=== PATIENT | female | born 1935 | race Caucasian/White ===

== ENCOUNTER → 2017-04-25 | Outpatient (CLI) | payer MEDICARE ==
[2017-04-25 17:25] LABS: ABSOLUTE BASOPHILS # (AUTO) 0.1 10^3/uL (0.0-0.2); ABSOLUTE EOSINOPHILS # (AUTO) 0.5 10^3/uL (0.0-0.6); ABSOLUTE LYMPHOCYTES (AUTO) 2.8 10^3/uL (0.5-4.7); ABSOLUTE MONOCYTES (AUTO) 1.2 10^3/uL (0.1-1.4); ABSOLUTE NEUT (AUTO) 7.3 10^3/uL (1.7-8.2); BASOPHILS % (AUTO) 0.7 % (0-2); EOSINOPHILS % (AUTO) 4.3 % (0-6); HEMATOCRIT 40.1 % (36.0-47.0); HEMOGLOBIN 13.6 g/dL (12.0-15.5); HGB HCT DIFFERENCE 0.7; LYMPHOCYTES % (AUTO) 23.6 % (13-45); MEAN CORPUSCULAR HEMOGLOBIN 30.9 pg (27.0-33.4); MEAN CORPUSCULAR HGB CONC 33.8 g/dL (32.0-36.0); MEAN CORPUSCULAR VOLUME 91 fl (80-97); MONOCYTES % (AUTO) 10.1 % (3-13); RED BLOOD COUNT 4.39 10^6/uL (3.72-5.28); RED CELL DISTRIBUTION WIDTH 13.4 % (11.5-14.0); SEGMENTED NEUTROPHILS % (AUTO) 61.3 % (42-78); WHITE BLOOD COUNT 11.9 10^3/uL (4.0-10.5)
== END ==
LOC: OD 16:39
PROVIDERS: ATTEND Internal Medicine Pulmonary Disease
DX: J32.9 Chronic sinusitis, unspecified (principal); R53.81 Other malaise
CPT/HCPCS: 36415; 85025; 87086; 87804

== ENCOUNTER → 2017-04-29 | Outpatient (CLI) | payer MEDICARE ==
--- NOTE | 2017-04-29 12:38 | RADIOLOGY REPORT (SQ) ---
EXAM DESCRIPTION: PARANASAL SINUSES COMPLETED DATE/TIME: 04/29/2017 12:15 pm REASON FOR STUDY: CHRONIC SINUSITIS, UNSPECIFIED J32.9 CHRONIC SINUSITIS, UNSPECIFIED COMPARISON: None. NUMBER OF VIEWS: Three views TECHNIQUE: Images of the paranasal sinuses acquired. LIMITATIONS: None. FINDINGS: ORBITS: No fracture. No foreign body. SINUSES: No mucosal thickening. No air fluid levels. FACIAL BONES: No fracture. OTHER: No other significant finding. IMPRESSION: NO FOREIGN BODY OR FRACTURE. NO PLAIN RADIOGRAPHIC EVIDENCE FOR SINUS DISEASE. TECHNICAL DOCUMENTATION: JOB ID: [id number] [employer]- All Rights Reserved
== END ==
LOC: OD 12:04
PROVIDERS: ATTEND Internal Medicine Pulmonary Disease
DX: J32.9 Chronic sinusitis, unspecified (principal)
CPT/HCPCS: 70220

== ENCOUNTER 2017-05-06 03:17 | Inpatient (IN) | payer MEDICARE ==
[2017-05-06] MEDS ORDERED: METHYLPREDNISOLONE INJ 125 MG/2 ML SDV IV ONE (03:28)
[2017-05-06] MEDS ORDERED: IPRATROPIUM/ALBUTEROL 0.5-2.5 MG/3 ML AMPUL NEB ONE ×2 (03:28→05:50)
--- NOTE | 2017-05-06 03:31 | ER Document Report ---
ED Respiratory Problem - General Stated Complaint: SHORTNESS OF BREATH Time Seen by Provider: 05/06/17 03:20 Notes: Patient is an 81-year-old female comes emergency department by EMS for chief complaint of shortness of breath, cough, weakness, and low-grade fevers for the past 2 days. She states that she just completed a course of azithromycin, she states she was placed on this after she was evaluated by her bacon skinner Dr. Luna. Past medical history of COPD, wears oxygen at night, has home inhalers , denies intubation. Up-to-date on influenza. Denies chest pain. Given albuterol by EMS, states she does feel improved afterwards. TRAVEL OUTSIDE OF THE [place] IN LAST 30 DAYS: No - Related Data Allergies/Adverse Reactions: Penicillins Allergy (Verified 09/15/15 06:36) ITCHING pregabalin [From Lyrica] Adverse Reaction (Intermediate, Verified 09/15/15 06:36 ) "[place] Funny" Past Medical History - General Information source: Patient, Relative - Social History Smoking Status: Former Smoker Frequency of alcohol use: None Drug Abuse: None Lives with: Family Family History: None - Past Medical History Cardiac Medical History: Reports: Hx Hypertension Pulmonary Medical History: Reports: Hx COPD, Hx Pneumonia Musculoskeltal Medical History: Reports Hx Arthritis Past Surgical History: Reports: Hx Cholecystectomy, Hx Tubal Ligation. Denies: Hx Hysterectomy - Immunizations Hx Diphtheria, Pertussis, Tetanus Vaccination: Yes Hx Pneumococcal Vaccination: 05/13/15 Review of Systems - Review of Systems Constitutional: See HPI EENT: No symptoms reported Cardiovascular: No symptoms reported Respiratory: See HPI Gastrointestinal: No symptoms reported Genitourinary: No symptoms reported Female Genitourinary: No symptoms reported Musculoskeletal: No symptoms reported Skin: No symptoms reported Hematologic/Lymphatic: No symptoms reported Neurological/Psychological: No symptoms reported Physical Exam - Vital signs Vitals: Temp Pulse Resp BP Pulse Ox 98.3 F 107 H 24 H 138/66 H 94 05/06/17 03:22 05/06/17 03:22 05/06/17 03:22 05/06/17 03:22 05/06/17 03:22 Interpretation: Normal - General General appearance: Alert - HEENT Head: Normocephalic, Atraumatic Eyes: Normal Pupils: PERRL - Respiratory Respiratory status: Tachypnea Breath sounds: Decreased air movement, Nonproductive cough, Wheezing - Cardiovascular Rhythm: Regular, Tachycardia Heart sounds: Normal auscultation, S1 appreciated, S2 appreciated Murmur: No - Abdominal Inspection: Normal Distension: No distension Bowel sounds: Normal Tenderness: Nontender. No: Tender, Guarding - Back Back: Normal, Nontender. No: Tender - Extremities General upper extremity: Normal inspection, Nontender, Normal ROM, Normal strength General lower extremity: Normal inspection, Nontender, Normal ROM, Normal strength - Neurological Neuro grossly intact: Yes Cognition: Normal Orientation: AAOx4 [place] Coma Scale Eye Opening: Spontaneous [place] Coma Scale Verbal: Oriented [place] Coma Scale Motor: Obeys Commands [place] Coma Scale Total: 15 Speech: Normal Motor strength normal: LUE, RUE, LLE, RLE Sensory: Normal - Psychological Associated symptoms: Normal affect, Normal mood - Skin Skin Temperature: Warm Skin Moisture: Dry Skin Color: Normal Course - Re-evaluation Re-evalutation: 05/06/17 Patient with tachypnea, expiratory wheezes, congested cough. Given DuoNeb, she is Yair received treatment from EMS, giving Solu-Medrol. Placed on oxygen. Workup pending. CBC unremarkable, chemistry unremarkable, troponin is not elevated, urinalysis unremarkable. Influenza negative. Venous blood gas is unremarkable. Blood cultures pending. Reevaluated patient, wheezing has resolved. She got up and went to the bathroom and had significantly more labored breathing and became pale. On oxygen patient having episodes of desaturation where she will drop down to 89-90 % and then recover. Chest x-ray has the appearance of right-sided pneumonia, radiologist reading as vascular congestion, however patient having low-grade fevers, productive cough, and BNP is not elevated. No history of heart failure, no lower extremity edema , no rales on exam. Discussed with Dr. Jenkins, also believes chest x-ray suggestive of pneumonia. Clinically I believe patient has pneumonia. Treating with Keenan. Concerned about patient going home because of episodes of desaturation, COPD exacerbation, pneumonia, and advanced age. Discussed with patient and family members at bedside. Will discuss with hospitalist for admission. Discussed with Dr. Mcelroy, internal medicine, patient will be admitted to telemetry full admission. Patient and family state understanding and agreement with this plan. - Vital Signs Vital signs: Temp Pulse Resp BP Pulse Ox 98.3 F 107 H 26 H 131/64 H 95 05/06/17 03:22 05/06/17 03:22 05/06/17 06:01 05/06/17 06:01 05/06/17 06:01 - Laboratory Result Diagrams: 05/06/17 03:52 05/06/17 03:52 Laboratory results interpreted by me: 05/06/17 04:30 Urine Blood SMALL H Discharge - Discharge Clinical Impression: Acute respiratory failure with hypoxia, COPD exacerbation, Wheezing Pneumonia Qualifiers: Pneumonia type: due to unspecified organism Laterality: right Lung location: middle lobe of lung Qualified Code(s): J18.1 - Lobar pneumonia, unspecified organism Condition: Stable Disposition: ADMITTED INPATIENT Admitting Provider: Hospitalist Unit Admitted: Telemetry
[2017-05-06 04:09] LABS: VENOUS BLOOD BASE EXCESS 1.9 mmol/L; VENOUS BLOOD HCO3 27.5 mmol/L (20-32); VENOUS BLOOD PCO2 46.3 mmHg (35-63); VENOUS BLOOD PH 7.39 (7.30-7.42)
[2017-05-06 04:12] LABS: ABSOLUTE EOSINOPHILS # (AUTO) 0.1 10^3/uL (0.0-0.6); ABSOLUTE LYMPHOCYTES (AUTO) 1.1 10^3/uL (0.5-4.7); ABSOLUTE MONOCYTES (AUTO) 0.5 10^3/uL (0.1-1.4); ABSOLUTE NEUT (AUTO) 3.6 10^3/uL (1.7-8.2); BASOPHILS % (AUTO) 0.2 % (0-2); HEMATOCRIT 42.2 % (36.0-47.0); HEMOGLOBIN 14.1 g/dL (12.0-15.5); LYMPHOCYTES % (AUTO) 20.2 % (13-45); MEAN CORPUSCULAR HEMOGLOBIN 30.3 pg (27.0-33.4); MEAN CORPUSCULAR HGB CONC 33.3 g/dL (32.0-36.0); MEAN CORPUSCULAR VOLUME 91 fl (80-97); PLATELET COUNT 206 10^3/uL (150-450); RED BLOOD COUNT 4.63 10^6/uL (3.72-5.28); RED CELL DISTRIBUTION WIDTH 13.7 % (11.5-14.0); SEGMENTED NEUTROPHILS % (AUTO) 67.6 % (42-78); TOTAL CELLS COUNTED % (AUTO) 100 %; WHITE BLOOD COUNT 5.3 10^3/uL (4.0-10.5)
[2017-05-06 04:21] LABS: ALANINE AMINOTRANSFERASE 27 U/L (9-52); ALBUMIN 3.9 g/dL (3.5-5.0); ALKALINE PHOSPHATASE 59 U/L (38-126); ANION GAP 10 (5-19); ASPARTATE AMINO TRANSFERASE 29 U/L (14-36); BILIRUBIN,DIRECT 0.2 mg/dL (0.0-0.4); BILIRUBIN,TOTAL 0.3 mg/dL (0.2-1.3); BLOOD UREA NITROGEN 11 mg/dL (7-20); CALCIUM 9.7 mg/dL (8.4-10.2); CARBON DIOXIDE 29 mmol/L (22-30); CHLORIDE 103 mmol/L (98-107); GLUCOSE 103 mg/dL (75-110); POTASSIUM 3.8 mmol/L (3.6-5.0); SODIUM 142.2 mmol/L (137-145); TOTAL PROTEIN 6.8 g/dL (6.3-8.2)
--- NOTE | 2017-05-06 04:22 | RADIOLOGY REPORT (SQ) ---
EXAM DESCRIPTION: CHEST SINGLE VIEW CLINICAL HISTORY: 81 years, Female, cough, fever, weak COMPARISON: 09/28/2015, and CT, 05/08/2014; reports only. LIMITATIONS: None. FINDINGS: Pulmonary vascular congestion, mild interstitial markings, blunting-obscuration of the right costophrenic angle, atherosclerosis, moderate thoracic dextroconvexity, mild thickening of the right inferior pleura laterally consistent with prior reports, and intact bony thorax. IMPRESSION: Pulmonary vascular congestion. 2010 [employer]- All Rights Reserved
[2017-05-06 04:30] LABS: A TYPE INFLUENZA AG NEGATIVE (NEGATIVE); B INFLUENZA AG NEGATIVE (NEGATIVE)
[2017-05-06 04:56] LABS: APPEARANCE,URINE CLEAR; BILIRUBIN,URINE NEGATIVE (NEGATIVE); COLOR,URINE YELLOW; GLUCOSE, URINE NEGATIVE (NEGATIVE); KETONES,URINE NEGATIVE (NEGATIVE); LEUKOCYTE ESTERASE,URINE NEGATIVE (NEGATIVE); NITRITE,URINE NEGATIVE (NEGATIVE); PROTEIN,URINE NEGATIVE (NEGATIVE); URINE SPECIFIC GRAVITY 1.008; UROBILINOGEN,URINE NEGATIVE mg/dL (<2.0)
[2017-05-06] MEDS ORDERED: LEVOFLOXACIN 750 MG/D5W RTU 750 MG/150 ML RTUPB IV ONE (05:47)
[2017-05-06] MEDS ORDERED: ALBUTEROL SULFATE HFA (90 MCG/PUFF) 8 GM MDI (1 MDI/ER DISP) IH PRN (05:54)
[2017-05-06] MEDS ORDERED: DIAZEPAM 5 MG TABLET PO PRN (05:54)
[2017-05-06] MEDS ORDERED: CHLORPHENIRAMINE MALEATE 4 MG TABLET PO ONE (05:58)
[2017-05-06] MEDS ORDERED: HYDRALAZINE HCL INJ/PF 20 MG/1 ML SDV IV PRN (05:58)
[2017-05-06] MEDS ORDERED: ACETAMINOPHEN 325 MG TABLET PO PRN (05:58)
[2017-05-06] MEDS ORDERED: IPRATROPIUM/ALBUTEROL 0.5-2.5 MG/3 ML AMPUL NEB PRN (06:02)
[2017-05-06] MEDS ORDERED: PREDNISONE 20 MG TABLET PO ONE (06:30)
[2017-05-06] MEDS ORDERED: CLINDAMYCIN 600 MG/D5W RTU 600 MG/50 ML RTUPB IV ONE (06:30)
[2017-05-06] MEDS ORDERED: CEFEPIME 1 GM/D5W RTU 1 GM/50 ML RTUPB IV ONE (06:30)
[2017-05-06] MEDS: HEPARIN SOD (PORCINE) 5,000 UNIT/ML 1 ML SYRINGE SUBCUT SCH ×3 (07:03→22:23)
--- NOTE | 2017-05-06 07:24 | PDOC H&P ---
History of Present Illness Admission Date/PCP: 05/06/17 06:03 NORMA AKERS MD Patient complains of: Shortness of breath History of Present Illness: BERRY JAVED is a 81 year old female with a past medical history of COPD, acute on chronic respiratory failure on home oxygen, osteoarthritis, hypertension and PE 40 years ago. Patient presents with 24 hours of rhinorrhea , postnasal drip, nonproductive cough, fever and exceptional shortness of breath not alleviated by oxygen and inhalers. In the emergency room she is hypoxic with oxygen saturations of 88% on 2 L nasal cannula. Bio physical and chemical workup are unremarkable. She started on oxygen, empiric antibiotics albuterol and Atrovent then referred to the hospitalist for admission. She denies chest pain nausea vomiting diaphoresis. Past Medical History Cardiac Medical History: Reports: Hypertension Pulmonary Medical History: Reports: Bronchitis, Chronic Obstructive Pulmonary Disease (COPD), Pneumonia, Respiratory Failure Musculoskeltal Medical History: Reports: Arthritis Psychiatric Medical History: Denies: Tobacco Dependency Hematology: Denies: Anemia, Sickle Cell Disease Past Surgical History Past Surgical History: Reports: Cholecystectomy, Tubal Ligation Denies: Amputation, Hysterectomy Social History Information Source: Patient Smoking Status: Unknown if Ever Smoked Frequency of Alcohol Use: None Hx Recreational Drug Use: No Drugs: None Hx Prescription Drug Abuse: No - Advance Directive Resuscitation Status: Full Code Family History Family History: COPD Parental Family History Reviewed: Yes Children Family History Reviewed: Yes Sibling(s) Family History Reviewed.: Yes Medication/Allergy Home Medications: Albuterol Sulfate [Proair HFA] 2 puff IH Q4 PRN 05/08/14 Amlodipine Besylate/Benazepril [Amlodipine-Benazepril 10-20 mg] 1 cap PO DAILY 05/08/14 Docusate Sodium [Colace] 50 mg PO QHS 05/08/14 Furosemide [Lasix 40 mg Tablet] 40 mg PO QAM 05/08/14 Ipratropium/Albuterol Sulfate [Combivent Inhaler] 1 puff IH QID 05/08/14 Rosuvastatin Calcium [Crestor 10 mg Tablet] 10 mg PO QHS 05/08/14 Tramadol HCl 50 mg PO BIDP PRN 05/08/14 Calcium Carb/Vitamin D3/Vit K1 [Calcium + D Soft Chewable Tab] 1 tab PO BIDBS Cholecalciferol (Vitamin D3) [Vitamin D3] 4,000 unit PO DAILY 05/09/14 Cyanocobalamin (Vitamin B-12) [Vitamin B-12] 2,500 mg PO DAILY 05/09/14 Diazepam [Valium 5 mg Tablet] 5 mg PO DAILYP PRN 05/09/14 Loratadine [Claritin] 10 mg PO DAILY 05/09/14 Multivitamin [Multi-Vitamin Daily] 1 tab PO DAILY 05/09/14 Ubidecarenone [Ultra Coq10] 1 tab PO DAILY 05/09/14 Doxycycline Hyclate 100 mg PO BID #20 tablet 09/26/15 Hydrocodone/Acetaminophen [Hemet 5-325 mg Tablet] 1 - 2 tab PO Q6HP PRN #20 tablet 09/26/15 Allergies/Adverse Reactions: Penicillins Allergy (Verified 09/15/15 06:36) ITCHING pregabalin [From Lyrica] Adverse Reaction (Intermediate, Verified 09/15/15 06:36 ) "[place] Funny" Review of Systems Constitutional: PRESENT: fatigue, fever(s). ABSENT: chills, headache(s), weight gain, weight loss Eyes: ABSENT: visual disturbances Ears: ABSENT: hearing changes Cardiovascular: ABSENT: chest pain, dyspnea on exertion, edema, orthropnea, palpitations Respiratory: PRESENT: as per HPI, cough, dyspnea. ABSENT: hemoptysis, sputum Gastrointestinal: ABSENT: abdominal pain, constipation, diarrhea, hematemesis, hematochezia, nausea, vomiting Genitourinary: ABSENT: dysuria, hematuria Musculoskeletal: ABSENT: joint swelling Integumentary: ABSENT: rash, wounds Neurological: ABSENT: abnormal gait, abnormal speech, confusion, dizziness, focal weakness, syncope Psychiatric: ABSENT: anxiety, depression, homidical ideation, suicidal ideation Endocrine: ABSENT: cold intolerance, heat intolerance, polydipsia, polyuria Hematologic/Lymphatic: ABSENT: easy bleeding, easy bruising Physical Exam Vital Signs: Temp Pulse Resp BP Pulse Ox 98.3 F 107 H 26 H 131/64 H 95 05/06/17 03:22 05/06/17 03:22 05/06/17 06:01 05/06/17 06:01 05/06/17 06:01 General appearance: PRESENT: cooperative, mild distress, thin Head exam: PRESENT: atraumatic, normocephalic Eye exam: PRESENT: conjunctiva pink, EOMI, PERRLA. ABSENT: scleral icterus Ear exam: PRESENT: normal external ear exam Mouth exam: PRESENT: moist, tongue midline Neck exam: ABSENT: carotid bruit, JVD, lymphadenopathy, thyromegaly Respiratory exam: PRESENT: accessory muscle use, crackles, prolonged expiratory phas, rales, retraction, symmetrical, tachypnea, wheezes Cardiovascular exam: PRESENT: RRR. ABSENT: diastolic murmur, rubs, systolic murmur Pulses: PRESENT: normal dorsalis pedis pul Vascular exam: PRESENT: normal capillary refill GI/Abdominal exam: PRESENT: normal bowel sounds, soft. ABSENT: distended, guarding, mass, organolmegaly, rebound, tenderness Rectal exam: PRESENT: deferred Extremities exam: PRESENT: full ROM. ABSENT: calf tenderness, clubbing, pedal edema Neurological exam: PRESENT: alert, awake, oriented to person, oriented to place , oriented to time, oriented to situation, CN II-XII grossly intact. ABSENT: motor sensory deficit Skin exam: PRESENT: dry, intact, warm. ABSENT: cyanosis, rash Results Impressions: Chest X-Ray 05/06/17 03:28 IMPRESSION: Pulmonary vascular congestion. 2010 [facility] [employer]- All Rights Reserved Assessment & Plan - Diagnosis (1) Acute sinusitis Qualifiers: Sinusitis location: maxillary Is this a current diagnosis for this admission?: Yes Plan: Chlorpheniramine, Flonase, empiric antibiotics follow-up CBC (2) Acute respiratory failure with hypoxia Is this a current diagnosis for this admission?: Yes Plan: Supplemental oxygen, BiPAP as needed, flutter valve, albuterol and Atrovent. Consider pulmonary rehab referral (3) COPD exacerbation Is this a current diagnosis for this admission?: Yes Plan: Secondary to acute sinusitis please see above. Prednisone 20 mg p.o. twice daily (4) Pneumonia Qualifiers: Pneumonia type: due to unspecified organism Laterality: right Lung location: middle lobe of lung Qualified Code(s): J18.1 - Lobar pneumonia, unspecified organism Is this a current diagnosis for this admission?: Yes Plan: Likely early pneumonia secondary to sinusitis complicated by chronic respiratory failure. Empiric antibiotics limit QT prolonging agents given QT intervals 475. Follow-up blood culture and CBC - Time Time Spent: 50 to 70 Minutes - Inpatient Certification Medical Necessity: Need Close Monitoring Due to Risk of Patient Decompensation
[2017-05-06] MEDS: FUROSEMIDE 40 MG TABLET PO SCH (08:17)
[2017-05-06] MEDS ORDERED: (PENDING PHARMACY ID) (Amlodipine Besylate/Benazepril [Amlodipine-Benazepril 10-20 Mg] 1 C PO SCH (10:00)
[2017-05-06] MEDS: GUAIFENESIN 600 MG TABLET.SA PO SCH ×2 (10:21→22:21)
[2017-05-06] MEDS: LORATADINE 10 MG TABLET PO SCH (10:21)
[2017-05-06] MEDS: METOLAZONE 2.5 MG TABLET PO SCH (10:21)
[2017-05-06] MEDS: FLUTICASONE NASAL SPRAY 50 MCG/SPRY 120 SPRAY/16 GM NASL SCH ×2 (10:22→22:23)
--- NOTE | 2017-05-06 10:23 | EKG REPORT ---
SEVERITY:- ABNORMAL ECG - SINUS TACHYCARDIA BIATRIAL ABNORMALITIES BORDERLINE INFERIOR Q WAVES : Confirmed by: Clifford Dempsey 06-May-2017 10:23:11
[2017-05-06] MEDS: BENAZEPRIL HCL 20 MG TABLET PO SCH (12:28)
[2017-05-06] MEDS: AMLODIPINE BESYLATE 10 MG TABLET PO SCH (12:28)
[2017-05-06] MEDS: CLINDAMYCIN 600 MG/D5W RTU 600 MG/50 ML RTUPB IV SCH ×2 (14:26→22:23)
[2017-05-06] MEDS: PREDNISONE 20 MG TABLET PO SCH (18:18)
[2017-05-06] MEDS: CEFEPIME 1 GM/D5W RTU 1 GM/50 ML RTUPB IV SCH (18:29)
[2017-05-06] MEDS ORDERED: ACETYLCYSTEINE 20% SOLN 800 MG/4 ML VIAL.NEB NEB ONE (19:30)
[2017-05-06] MEDS: IPRATROPIUM/ALBUTEROL 0.5-2.5 MG/3 ML AMPUL NEB SCH (20:27)
[2017-05-06] MEDS: DOCUSATE SODIUM 100 MG CAPSULE PO SCH (22:22)
[2017-05-06] MEDS: ATORVASTATIN CALCIUM 20 MG TABLET PO SCH (22:22)
[2017-05-07] MEDS: IPRATROPIUM/ALBUTEROL 0.5-2.5 MG/3 ML AMPUL NEB SCH (01:55)
[2017-05-07] MEDS: HEPARIN SOD (PORCINE) 5,000 UNIT/ML 1 ML SYRINGE SUBCUT SCH (05:47)
[2017-05-07] MEDS: CEFEPIME 1 GM/D5W RTU 1 GM/50 ML RTUPB IV SCH (05:47)
[2017-05-07] MEDS: CLINDAMYCIN 600 MG/D5W RTU 600 MG/50 ML RTUPB IV SCH (05:48)
[2017-05-07 05:51] LABS: ABSOLUTE LYMPHOCYTES (AUTO) 1.4 10^3/uL (0.5-4.7); ABSOLUTE MONOCYTES (AUTO) 0.9 10^3/uL (0.1-1.4); ABSOLUTE NEUT (AUTO) 4.5 10^3/uL (1.7-8.2); BASOPHILS % (AUTO) 0.2 % (0-2); HEMATOCRIT 40.9 % (36.0-47.0); HEMOGLOBIN 13.6 g/dL (12.0-15.5); LYMPHOCYTES % (AUTO) 20.6 % (13-45); MEAN CORPUSCULAR HEMOGLOBIN 29.7 pg (27.0-33.4); MEAN CORPUSCULAR HGB CONC 33.2 g/dL (32.0-36.0); MEAN CORPUSCULAR VOLUME 90 fl (80-97); MONOCYTES % (AUTO) 13.2 % (3-13); PLATELET COUNT 231 10^3/uL (150-450); RED BLOOD COUNT 4.57 10^6/uL (3.72-5.28); RED CELL DISTRIBUTION WIDTH 13.5 % (11.5-14.0); TOTAL CELLS COUNTED % (AUTO) 100 %; WHITE BLOOD COUNT 6.7 10^3/uL (4.0-10.5)
[2017-05-07 06:24] LABS: ANION GAP 8 (5-19); BLOOD UREA NITROGEN 14 mg/dL (7-20); CALCIUM 9.7 mg/dL (8.4-10.2); CARBON DIOXIDE 35 mmol/L (22-30); CHLORIDE 93 mmol/L (98-107); GLUCOSE 116 mg/dL (75-110); MAGNESIUM 2.2 mg/dL (1.6-2.3); POTASSIUM 4.4 mmol/L (3.6-5.0); SODIUM 136.4 mmol/L (137-145)
[2017-05-07] MEDS: LEVALBUTEROL HCL NEB 1.25 MG/3 ML AMPUL NEB SCH ×3 (08:17→19:54)
[2017-05-07] MEDS: ACETYLCYSTEINE 20% SOLN 800 MG/4 ML VIAL.NEB NEB SCH ×2 (08:18→19:54)
[2017-05-07] MEDS: FUROSEMIDE 40 MG TABLET PO SCH (09:12)
[2017-05-07] MEDS: PREDNISONE 20 MG TABLET PO SCH ×2 (09:12→17:35)
[2017-05-07] MEDS: FLUTICASONE NASAL SPRAY 50 MCG/SPRY 120 SPRAY/16 GM NASL SCH ×2 (09:13→22:12)
[2017-05-07] MEDS: LORATADINE 10 MG TABLET PO SCH (09:13)
[2017-05-07] MEDS: METOLAZONE 2.5 MG TABLET PO SCH (09:13)
[2017-05-07] MEDS ORDERED: PREDNISONE 20 MG TABLET PO SCH (10:00)
[2017-05-07] MEDS ORDERED: LEVOFLOXACIN 500 MG/D5W RTU 500 MG/100 ML RTUPB IV SCH (11:00)
--- NOTE | 2017-05-07 12:24 | PDOC PROGRESS REPORT ---
Subjective Progress Note for:: 05/07/17 Subjective:: Patient admitted for COPD exacerbation due to acute bronchitis. Patient states that she is able to bring up her mucus since she is been on the Mucomyst. Patient states she actually feels pretty good. Patient uses her flutter valve and has been eating a little better. Reason For Visit: COPD EXACERBATION PNEUMONIA Physical Exam Vital Signs: Temp Pulse Resp BP Pulse Ox 98.2 F 100 18 138/65 H 93 05/07/17 11:42 05/07/17 11:42 05/07/17 11:42 05/07/17 11:42 05/07/17 11:42 Intake & Output 05/06/17 05/07/17 05/08/17 06:59 06:59 06:59 Intake Total 1700 Balance 1700 Weight 70.8 kg General appearance: PRESENT: no acute distress, obese, well-developed, well- nourished Head exam: PRESENT: normocephalic Eye exam: PRESENT: EOMI. ABSENT: scleral icterus Mouth exam: PRESENT: moist Teeth exam: PRESENT: edentulous Neck exam: ABSENT: carotid bruit, JVD, lymphadenopathy, thyromegaly Respiratory exam: PRESENT: unlabored, wheezes. ABSENT: accessory muscle use, rales, rhonchi Cardiovascular exam: PRESENT: RRR. ABSENT: diastolic murmur, rubs, systolic murmur GI/Abdominal exam: PRESENT: normal bowel sounds, soft. ABSENT: distended, guarding, mass, organolmegaly, rebound, tenderness Rectal exam: PRESENT: deferred Extremities exam: PRESENT: full ROM. ABSENT: calf tenderness, clubbing, pedal edema Neurological exam: PRESENT: alert, awake, oriented to person, oriented to place , oriented to time, oriented to situation, CN II-XII grossly intact. ABSENT: motor sensory deficit Psychiatric exam: PRESENT: appropriate affect, normal mood. ABSENT: homicidal ideation, suicidal ideation Skin exam: PRESENT: dry, intact, warm. ABSENT: cyanosis, rash Results Laboratory Results: 05/07/17 05:39 05/07/17 05:39 05/07/17 05/07/17 05:39 05:39 WBC 6.7 RBC 4.57 Hgb 13.6 Hct 40.9 MCV 90 MCH 29.7 MCHC 33.2 RDW 13.5 Plt Count 231 Seg Neutrophils % 66.0 Lymphocytes % 20.6 Monocytes % 13.2 H Eosinophils % 0.0 Basophils % 0.2 Absolute Neutrophils 4.5 Absolute Lymphocytes 1.4 Absolute Monocytes 0.9 Absolute Eosinophils 0.0 Absolute Basophils 0.0 Sodium 136.4 L Potassium 4.4 Chloride 93 L Carbon Dioxide 35 H Anion Gap 8 BUN 14 Creatinine 0.86 Est GFR ( Amer) > 60 Est GFR (Non-Af Amer) > 60 Glucose 116 H Calcium 9.7 Magnesium 2.2 Impressions: Chest X-Ray 05/06/17 03:28 IMPRESSION: Pulmonary vascular congestion. 2010 [employer]- All Rights Reserved Assessment & Plan - Diagnosis (1) Acute bronchitis Is this a current diagnosis for this admission?: Yes Plan: Patient with acute bronchitis most likely viral in nature as patient was having rhinorrhea, cough and low-grade fever. Patient is flu negative. Will de- escalate antibiotics to Levaquin. No growth on blood cultures. Patient has been afebrile since admission. (2) Acute respiratory failure with hypoxia Is this a current diagnosis for this admission?: Yes Plan: Patient lowest saturation was 91. This is most likely due to her COPD exacerbation from acute viral bronchitis. Will continue with nebs, p.o. steroids, the desonide and p.o. steroids which was increased from 20 mg p.o. twice daily to 30 mg p.o. twice daily. (3) COPD exacerbation Is this a current diagnosis for this admission?: Yes (4) Pulmonary nodules Is this a current diagnosis for this admission?: Yes Plan: Is known to have pulmonary nodules. She does follow with Dr. Luna. This was discussed with Dr. Luna today who stated that he discussed the option of a PET scan. However patient's age he is not sure what would be done if her PET scan were to be concerning for possible metastatic malignancy. (5) HTN (hypertension) Qualifiers: Hypertension type: essential hypertension Qualified Code(s): I10 - Essential (primary) hypertension Is this a current diagnosis for this admission?: Yes Plan: Patient continue on her home medications. (6) Acute sinusitis Qualifiers: Sinusitis location: maxillary Is this a current diagnosis for this admission?: Yes Plan: Continue flonase, singulair and levaquin. - Time Time Spent with patient: Less than 15 minutes Anticipated discharge: Home with Homehealth Within: within 48 hours
[2017-05-07] MEDS: AMLODIPINE BESYLATE 10 MG TABLET PO SCH (12:49)
[2017-05-07] MEDS: BENAZEPRIL HCL 20 MG TABLET PO SCH (12:50)
[2017-05-07] MEDS ORDERED: FAMOTIDINE 20 MG TABLET PO ONE (18:30)
[2017-05-07] MEDS: BUDESONIDE NEB 0.5 MG/2 ML AMPUL NEB SCH (19:55)
--- NOTE | 2017-05-07 19:59 | PDOC CONSULTATION ---
Consultation Consult Date: 05/07/17 Attending physician:: BETO GOODMAN Consult reason:: copd History of Present Illness Admission Date/PCP: 05/06/17 06:03 NORMA AKERS MD History of Present Illness: BERRY JAVED is a 81 year old female with a past medical history of COPD, acute on chronic respiratory failure on home oxygen, osteoarthritis, hypertension and PE 40 years ago. Patient presents with 24 hours of rhinorrhea , postnasal drip, nonproductive cough, fever and exceptional shortness of breath not alleviated by oxygen and inhalers. In the emergency room she is hypoxic with oxygen saturations of 88% on 2 L nasal cannula. Bio physical and chemical workup are unremarkable. She started on oxygen, empiric antibiotics albuterol and Atrovent then referred to the hospitalist for admission. She denies chest pain nausea vomiting diaphoresis. Past Medical History Cardiac Medical History: Reports: Hypertension Pulmonary Medical History: Reports: Bronchitis, Chronic Obstructive Pulmonary Disease (COPD), Pneumonia, Respiratory Failure EENT Medical History: Denies: Ears, Nose Neurological Medical History: Denies: Multiple Sclerosis Endocrine Medical History: Denies: Diabetes Mellitus Type 1 Renal/ Medical History: Denies: End Stage Renal Disease, Nephrolithiasis Malignancy Medical History: Reports: None GI Medical History: Denies: Cirrhosis, Crohn's Disease, Ulcerative Colitis Musculoskeltal Medical History: Reports: Arthritis Denies: Gout Skin Medical History: Denies: Psoriasis Psychiatric Medical History: Denies: Tobacco Dependency Traumatic Medical History: Denies: Traumatic Brain Injury Hematology: Denies: Anemia, Sickle Cell Disease Infectious Medical History: Denies: Hepatitis B, Hepatitis C Past Surgical History Past Surgical History: Reports: Cholecystectomy, Tubal Ligation Denies: Amputation, Hysterectomy Social History Information Source: Patient, [facility] Records Lives with: Family Smoking Status: Former Smoker Cigarettes Packs Per Day: 2 Number of Years Smokin Passive smoke exposure as: Both Frequency of Alcohol Use: None Hx Recreational Drug Use: No Drugs: None Hx Prescription Drug Abuse: No Do you have pets?: No Have you had any respiratory illnesses as a child?: No Have you been exposed to any sick contacts recently?: No Have you had any recent respiratory illnesses?: No Have you travelled outside of [place] in the past 12 months?: No - Advance Directive Resuscitation Status: Full Code Family History Family History: CAD, DM, Hypertension Parental Family History Reviewed: Yes Children Family History Reviewed: Yes Sibling(s) Family History Reviewed.: Yes Medication/Allergy Home Medications: Amlodipine Besylate/Benazepril [Lotrel 10-20 mg Capsule] 1 cap PO DAILY Budesonide/Formoterol Fumarate [Symbicort HFA 160-4.5 mcg Inhaler 6 gm] 2 puff IH BID 05/06/17 Calcium Carb/Vitamin D3/Vit K1 [Viactiv Soft Chew] 1 tab PO DAILY 05/06/17 Celecoxib [Celebrex 200 mg Capsule] 200 mg PO DAILY 05/06/17 Cyanocobalamin (Vitamin B-12) [Vitamin B12] 2,500 mcg PO DAILY 05/06/17 Diazepam [Valium 5 mg Tablet] 5 mg PO DAILYP PRN 05/06/17 Docusate Sodium [Colace 100 mg Capsule] 100 mg PO BIDP PRN 05/06/17 Furosemide [Lasix 40 mg Tablet] 40 mg PO QPM 05/06/17 Levothyroxine Sodium [Synthroid] 25 mcg PO DAILY 05/06/17 Loratadine [Claritin 10 mg Tablet] 10 mg PO DAILY 05/06/17 Multivit-Min/Iron/Folic/Lutein [Centrum Silver Women Tablet] 1 tab PO DAILY Rosuvastatin Calcium [Crestor 10 mg Tablet] 10 mg PO DAILY 05/06/17 Tiotropium [place] [Spiriva Handihaler 5 Cap/Kit (18 Mcg/Cap)] 2 puff IH QAM Tramadol HCl [Ultram 50 mg Tablet] 50 mg PO BIDP PRN 05/06/17 Allergies/Adverse Reactions: Penicillins Allergy (Verified 09/15/15 06:36) ITCHING pregabalin [From Lyrica] Adverse Reaction (Intermediate, Verified 09/15/15 06:36 ) "[place] Funny" Review of Systems Constitutional: ABSENT: anorexia, night sweats, weight gain Eyes: ABSENT: visual disturbances Ears: ABSENT: hearing changes Nose, Mouth, and Throat: ABSENT: mouth pain, sore throat Cardiovascular: PRESENT: dyspnea on exertion. ABSENT: palpitations Respiratory: ABSENT: hemoptysis Gastrointestinal: ABSENT: abdominal pain, coffee ground emesis, hematochezia, melena, nausea Genitourinary: ABSENT: dysuria, hematuria Musculoskeletal: ABSENT: deformity, joint swelling Integumentary: ABSENT: pruritus, rash Neurological: ABSENT: abnormal gait, abnormal speech, confusion, focal weakness , frequent falls, memory loss Psychiatric: ABSENT: homidical ideation, suicidal ideation Endocrine: ABSENT: menstrual abnormalities, polydipsia, polyuria Hematologic/Lymphatic: ABSENT: easy bruising Physical Exam Vital Signs: Temp Pulse Resp BP Pulse Ox 98.6 F 93 18 128/63 H 98 05/07/17 04:00 05/07/17 08:17 05/07/17 08:17 05/07/17 04:00 05/07/17 08:17 Intake & Output 05/06/17 05/07/17 05/08/17 06:59 06:59 06:59 Intake Total 1700 Balance 1700 Weight 70.8 kg General appearance: PRESENT: no acute distress, disheveled. ABSENT: morbidly obese, obese Head exam: PRESENT: atraumatic, normocephalic Eye exam: PRESENT: conjunctiva pale, EOMI. ABSENT: conjunctival injection, conjunctiva pink, nystagmus, periorbital swelling, scleral icterus Mouth exam: PRESENT: dry mucosa, neck supple, tongue midline. ABSENT: laceration, moist Neck exam: ABSENT: carotid bruit, JVD, lymphadenopathy, thyromegaly, tracheal deviation, tracheostomy Respiratory exam: PRESENT: decreased breath sounds, prolonged expiratory phas, rhonchi, symmetrical, unlabored, wheezes. ABSENT: clear to auscultation negrito, crackles, retraction, stridor, tachypnea Cardiovascular exam: PRESENT: RRR, +S1, +S2 Pulses: PRESENT: normal radial pulses GI/Abdominal exam: PRESENT: normal bowel sounds, soft. ABSENT: distended, guarding, mass, organolmegaly, rebound, tenderness Extremities exam: ABSENT: clubbing, joint swelling Musculoskeletal exam: ABSENT: deformity, dislocation Neurological exam: PRESENT: awake Skin exam: PRESENT: dry, warm Results Laboratory Results: 05/07/17 05:39 05/07/17 05:39 05/07/17 05/07/17 05:39 05:39 WBC 6.7 RBC 4.57 Hgb 13.6 Hct 40.9 MCV 90 MCH 29.7 MCHC 33.2 RDW 13.5 Plt Count 231 Seg Neutrophils % 66.0 Lymphocytes % 20.6 Monocytes % 13.2 H Eosinophils % 0.0 Basophils % 0.2 Absolute Neutrophils 4.5 Absolute Lymphocytes 1.4 Absolute Monocytes 0.9 Absolute Eosinophils 0.0 Absolute Basophils 0.0 Sodium 136.4 L Potassium 4.4 Chloride 93 L Carbon Dioxide 35 H Anion Gap 8 BUN 14 Creatinine 0.86 Est GFR ( Amer) > 60 Est GFR (Non-Af Amer) > 60 Glucose 116 H Calcium 9.7 Magnesium 2.2 Impressions: Chest X-Ray 05/06/17 03:28 IMPRESSION: Pulmonary vascular congestion. 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 Is this a current diagnosis for this admission?: Yes Plan: asbestos exsposure (3) COPD exacerbation Is this a current diagnosis for this admission?: Yes Plan: will add lama ---> spiriva Generic Name Dose Route Start Last Admin Trade Name Freq PRN Reason Stop Dose Admin Levalbuterol HCl 1.25 mg 05/07/17 08:00 05/07/17 08:17 Xopenex Neb 1.25 Mg/3 Ml Ampul NEB 06/06/17 07:59 1.25 mg RTQ6 CHU Fluticasone Propionate 2 spray 05/06/17 10:00 05/07/17 09:13 Flonase Nasal [place] 50 Mcg/[place] 16 Gm NASL 06/05/17 09:59 2 spray Q12 CHU Budesonide 0.5 mg 05/07/17 20:00 Pulmicort Neb 0.5 Mg/2 Ml Ampul NEB 06/06/17 19:59 RTQ12 CHU Prednisone 20 mg 05/06/17 18:00 05/07/17 09:12 Deltasone 20 Mg Tablet PO 06/05/17 17:59 20 mg BID CHU Albuterol 2 puff 05/06/17 05:54 Ventolin Hfa 8 Gm Mdi (1 Mdi/Er Disp) IH 06/05/17 05:53 Q4HP PRN SHORTNESS OF BREATH Acetylcysteine 600 mg 05/07/17 08:00 05/07/17 08:18 Mucomist 20% Soln 800 Mg/4 Ml NEB 06/06/17 07:59 600 mg RTBID CHU Levofloxacin/Dextrose 500 mg in 100 mls @ 100 mls/hr 05/07/17 11:00 Levaquin Rtu 500mg/D5w 100 Ml Premix IV 05/14/17 10:59 NOW CHU
--- NOTE | 2017-05-07 20:33 | EKG REPORT ---
SEVERITY:- ABNORMAL ECG - SINUS TACHYCARDIA BIATRIAL ABNORMALITIES : Confirmed by: Mallika Hansen MD 07-May-2017 20:32:37
[2017-05-07] MEDS: ATORVASTATIN CALCIUM 20 MG TABLET PO SCH (22:12)
[2017-05-07] MEDS: DOCUSATE SODIUM 100 MG CAPSULE PO SCH (22:12)
[2017-05-07] MEDS: MONTELUKAST SODIUM 10 MG TABLET PO SCH (22:12)
[2017-05-08] MEDS: LEVALBUTEROL HCL NEB 1.25 MG/3 ML AMPUL NEB SCH ×4 (01:50→19:55)
[2017-05-08] MEDS: ACETYLCYSTEINE 20% SOLN 800 MG/4 ML VIAL.NEB NEB SCH ×2 (09:06→19:54)
[2017-05-08] MEDS: BUDESONIDE NEB 0.5 MG/2 ML AMPUL NEB SCH ×2 (09:06→19:55)
[2017-05-08] MEDS ORDERED: BISACODYL 5 MG TABEC PO ONE (09:30)
[2017-05-08] MEDS: LEVOFLOXACIN 250 MG/D5W RTU 250 MG/50 ML RTUPB IV SCH (09:54)
[2017-05-08] MEDS: PREDNISONE 20 MG TABLET PO SCH ×2 (09:55→18:58)
[2017-05-08] MEDS: FUROSEMIDE 40 MG TABLET PO SCH (09:57)
[2017-05-08] MEDS: METOPROLOL SUCCINATE 25 MG TAB.SR.24H PO SCH (09:58)
[2017-05-08] MEDS: FLUTICASONE NASAL SPRAY 50 MCG/SPRY 120 SPRAY/16 GM NASL SCH ×2 (09:59→22:44)
[2017-05-08] MEDS ORDERED: SORBITOL 70% SOLUTION 30 ML UDC PO ONE (10:00)
--- NOTE | 2017-05-08 11:15 | PDOC PROGRESS REPORT ---
Subjective Progress Note for:: 05/08/17 Subjective:: I do not care for that machine Reason For Visit: COPD EXACERBATION PNEUMONIA Physical Exam Vital Signs: Temp Pulse Resp BP Pulse Ox 98.6 F 100 18 113/49 L 97 05/08/17 03:56 05/08/17 03:56 05/08/17 03:56 05/08/17 03:56 05/08/17 03:56 Intake & Output 05/07/17 05/08/17 05/09/17 06:59 06:59 06:59 Intake Total 1700 1648 Balance 1700 1648 Weight 70.8 kg 71.8 kg General appearance: PRESENT: no acute distress, cooperative, disheveled, thin. ABSENT: hard of hearing, mild distress, morbidly obese, obese, severe distress Head exam: PRESENT: atraumatic, normocephalic Eye exam: PRESENT: conjunctiva pale, EOMI. ABSENT: conjunctival injection, conjunctiva pink, nystagmus, periorbital swelling, scleral icterus Mouth exam: PRESENT: dry mucosa, neck supple, tongue midline. ABSENT: laceration, moist Teeth exam: PRESENT: poor dentation Neck exam: ABSENT: carotid bruit, JVD, lymphadenopathy, thyromegaly, tracheal deviation, tracheostomy Respiratory exam: PRESENT: decreased breath sounds, prolonged expiratory phas, rhonchi, symmetrical, unlabored, wheezes. ABSENT: accessory muscle use, chest wall tenderness, clear to auscultation negrito, crackles, rales, retraction, stridor , tachypnea Cardiovascular exam: PRESENT: RRR, +S1, +S2. ABSENT: rubs Pulses: PRESENT: normal radial pulses GI/Abdominal exam: PRESENT: normal bowel sounds, soft. ABSENT: distended, guarding, mass, organolmegaly, rebound, tenderness Extremities exam: ABSENT: clubbing, joint swelling Musculoskeletal exam: PRESENT: ambulatory. ABSENT: deformity, dislocation Neurological exam: PRESENT: alert, altered Skin exam: PRESENT: dry, warm Results Laboratory Results: 05/07/17 05:39 05/07/17 05:39 Impressions: Chest X-Ray 05/06/17 03:28 IMPRESSION: Pulmonary vascular congestion. 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 Is this a current diagnosis for this admission?: Yes Plan: asbestos exsposure (3) COPD exacerbation Is this a current diagnosis for this admission?: Yes Plan: will add lama ---> spiriva Generic Name Dose Route Start Last Admin Trade Name Freq PRN Reason Stop Dose Admin Levalbuterol HCl 1.25 mg 05/07/17 08:00 05/07/17 08:17 Xopenex Neb 1.25 Mg/3 Ml Ampul NEB 06/06/17 07:59 1.25 mg RTQ6 CHU Fluticasone Propionate 2 spray 05/06/17 10:00 05/07/17 09:13 Flonase Nasal [place] 50 Mcg/[place] 16 Gm NASL 06/05/17 09:59 2 spray Q12 CHU Budesonide 0.5 mg 05/07/17 20:00 Pulmicort Neb 0.5 Mg/2 Ml Ampul NEB 06/06/17 19:59 RTQ12 CHU Prednisone 20 mg 05/06/17 18:00 05/07/17 09:12 Deltasone 20 Mg Tablet PO 06/05/17 17:59 20 mg BID CHU Albuterol 2 puff 05/06/17 05:54 Ventolin Hfa 8 Gm Mdi (1 Mdi/Er Disp) IH 06/05/17 05:53 Q4HP PRN SHORTNESS OF BREATH Acetylcysteine 600 mg 05/07/17 08:00 05/07/17 08:18 Mucomist 20% Soln 800 Mg/4 Ml NEB 06/06/17 07:59 600 mg RTBID CHU Levofloxacin/Dextrose 500 mg in 100 mls @ 100 mls/hr 05/07/17 11:00 Levaquin Rtu 500mg/D5w 100 Ml Premix IV 05/14/17 10:59 NOW CHU add avaps12 rr tv 450 i 1 rise 5 epap 5 p min 5 p max12
[2017-05-08] MEDS: AMLODIPINE BESYLATE 10 MG TABLET PO SCH (13:15)
[2017-05-08] MEDS: BENAZEPRIL HCL 20 MG TABLET PO SCH (13:15)
[2017-05-08] MEDS: MAG HYDROX/AL HYDROX/SIMETH SUSP 30 ML UDCUP PO PRN (13:19)
--- NOTE | 2017-05-08 13:21 | PDOC PROGRESS REPORT ---
Subjective Progress Note for:: 05/08/17 Subjective:: Patient admitted for COPD exacerbation due to acute bronchitis. Patient states that she is able to bring up her mucus since she is been on the Mucomyst. Patient reports not having had a bowel movement. Patient would like to have something in order to have one. Patient states he had a episode of chilling last night however there are no reported fevers. Will have patient ambulate with PT today. Reason For Visit: COPD EXACERBATION PNEUMONIA Physical Exam Vital Signs: Temp Pulse Resp BP Pulse Ox 98.1 F 89 16 111/63 94 05/08/17 12:25 05/08/17 12:25 05/08/17 12:25 05/08/17 12:25 05/08/17 12:25 Intake & Output 05/07/17 05/08/17 05/09/17 06:59 06:59 06:59 Intake Total 1700 1648 Balance 1700 1648 Weight 70.8 kg 71.8 kg General appearance: PRESENT: no acute distress, obese Head exam: PRESENT: normocephalic Eye exam: PRESENT: EOMI. ABSENT: scleral icterus Ear exam: PRESENT: normal external ear exam Mouth exam: PRESENT: moist Neck exam: ABSENT: carotid bruit, JVD, lymphadenopathy, thyromegaly Respiratory exam: PRESENT: unlabored, wheezes. ABSENT: accessory muscle use, rales, rhonchi Cardiovascular exam: PRESENT: RRR. ABSENT: diastolic murmur, rubs, systolic murmur Pulses: PRESENT: normal dorsalis pedis pul GI/Abdominal exam: PRESENT: normal bowel sounds, soft. ABSENT: distended, guarding, mass, organolmegaly, rebound, tenderness Rectal exam: PRESENT: deferred Extremities exam: PRESENT: full ROM. ABSENT: calf tenderness, clubbing, pedal edema Neurological exam: PRESENT: alert, awake, oriented to person, oriented to place , oriented to time, oriented to situation, CN II-XII grossly intact. ABSENT: motor sensory deficit Psychiatric exam: PRESENT: appropriate affect, normal mood. ABSENT: homicidal ideation, suicidal ideation Skin exam: PRESENT: dry, intact, warm. ABSENT: cyanosis, rash Results Laboratory Results: 05/07/17 05:39 05/07/17 05:39 Impressions: Chest X-Ray 05/06/17 03:28 IMPRESSION: Pulmonary vascular congestion. 2010 [facility] [place] [employer]- All Rights Reserved Assessment & Plan - Diagnosis (1) Acute bronchitis Is this a current diagnosis for this admission?: Yes Plan: Patient with acute bronchitis most likely viral in nature as patient was having rhinorrhea, cough and low-grade fever. Patient is flu negative. . No growth on blood cultures. Continues to be afebrile. Will continue with nebs, antibiotics, oral steroids and flutter valve. (2) Acute respiratory failure with hypoxia Is this a current diagnosis for this admission?: Yes Plan: Patient lowest saturation was 91. This is most likely due to her COPD exacerbation from acute viral bronchitis. Continue with nebs, p.o. steroids at increased dose of 30mg po bid. (3) COPD exacerbation Is this a current diagnosis for this admission?: Yes (4) Pulmonary nodules Is this a current diagnosis for this admission?: Yes Plan: Is known to have pulmonary nodules. She does follow with Dr. Luna. This was discussed with Dr. Luna today who stated that he discussed the option of a PET scan. However patient's age he is not sure what would be done if her PET scan were to be concerning for possible metastatic malignancy. (5) HTN (hypertension) Qualifiers: Hypertension type: essential hypertension Qualified Code(s): I10 - Essential (primary) hypertension Is this a current diagnosis for this admission?: Yes Plan: Patient continue on her home medications. (6) Acute sinusitis Qualifiers: Sinusitis location: maxillary Is this a current diagnosis for this admission?: Yes Plan: Continue flonase, singulair and levaquin. Patient will be referred to ENT on discharge. This for her dizziness. (7) Constipation Qualifiers: Constipation type: unspecified constipation type Qualified Code(s): K59.00 - Constipation, unspecified Is this a current diagnosis for this admission?: Yes Plan: Patient given biscodyl and sorbitol. Will follow up. - Time Time Spent with patient: Less than 15 minutes Anticipated discharge: Home with Homehealth Within: within 48 hours - Inpatient Certification Medical Necessity: Significant Comorbidiites Make Outpatient Treatment Too Risky , Need Close Monitoring Due to Risk of Patient Decompensation, Need for IV Antibiotics
--- NOTE | 2017-05-08 16:08 | Physician Advisory Note ---
Physician Advisor ProgressNote .: Pursuant to the plan for [facility], I have reviewed the medical record for this patient. Physician Advisor Statement: Please clarify, r.e. dx of Acute on Chronic Hypoxemic Respiratory Failure: 1. How much O2 does she use at home? At baseline is O2 used "only at night" or "24/"? - Needing O2 at baseline to maintain O2 sats is sufficient to support dx of Chronic Respiratory Failure - 2. Was "lowest O2 sat 91% on ___" [on RA? on usual amount of O2?] - O2 sat 91% on usual amt O2 = not low enough to support dx of Ac Resp Failure - or was "lowest O2 sat 89% while on __L O2 in ED associated with labored breathing" (per ED physician note, after she got up to bathroom) - O2 sat <90% (A) while on usual amt O2, & (B) associated with increased work of breathing, is sufficient to support dx of Ac Resp Failure, if this O2 sat is significantly lower than pt's usual O2 sat on their usual amt of O2 - 3. Based on the above, was Acute Respiratory Failure (or Chronic Resp Failure) ruled out, or ruled in? Thanks for all you do! CK
[2017-05-08] MEDS ORDERED: CALCIUM CARBONATE 500 MG TAB.CHEW PO ONE (18:00)
[2017-05-08] MEDS: MONTELUKAST SODIUM 10 MG TABLET PO SCH (22:44)
[2017-05-08] MEDS: ATORVASTATIN CALCIUM 20 MG TABLET PO SCH (22:44)
[2017-05-08] MEDS: DOCUSATE SODIUM 100 MG CAPSULE PO SCH (22:45)
[2017-05-09] MEDS: LEVALBUTEROL HCL NEB 1.25 MG/3 ML AMPUL NEB SCH ×4 (02:34→20:09)
[2017-05-09] MEDS: BUDESONIDE NEB 0.5 MG/2 ML AMPUL NEB SCH ×2 (08:32→20:09)
[2017-05-09] MEDS: ACETYLCYSTEINE 20% SOLN 800 MG/4 ML VIAL.NEB NEB SCH ×2 (08:33→20:08)
[2017-05-09] MEDS: FUROSEMIDE 40 MG TABLET PO SCH (08:48)
[2017-05-09] MEDS: PREDNISONE 20 MG TABLET PO SCH ×2 (10:42→17:35)
[2017-05-09] MEDS: LEVOFLOXACIN 250 MG/D5W RTU 250 MG/50 ML RTUPB IV SCH (10:42)
[2017-05-09] MEDS: FLUTICASONE NASAL SPRAY 50 MCG/SPRY 120 SPRAY/16 GM NASL SCH ×2 (10:42→21:16)
[2017-05-09] MEDS: METOPROLOL SUCCINATE 25 MG TAB.SR.24H PO SCH (10:42)
[2017-05-09] MEDS: MAG HYDROX/AL HYDROX/SIMETH SUSP 30 ML UDCUP PO PRN (10:42)
--- NOTE | 2017-05-09 12:34 | PDOC PROGRESS REPORT ---
Subjective Progress Note for:: 05/09/17 Subjective:: I do not care for that machine Reason For Visit: COPD EXACERBATION PNEUMONIA Physical Exam Vital Signs: Temp Pulse Resp BP Pulse Ox 97.6 F 87 15 167/72 H 95 05/09/17 07:33 05/09/17 07:33 05/09/17 07:33 05/09/17 07:33 05/09/17 07:33 Intake & Output 05/08/17 05/09/17 05/10/17 06:59 06:59 06:59 Intake Total 1648 1308 Balance 1648 1308 Weight 71.8 kg 70.3 kg General appearance: PRESENT: no acute distress, cooperative, disheveled, thin, well-developed. ABSENT: mild distress, morbidly obese, obese, severe distress Head exam: PRESENT: atraumatic, normocephalic Eye exam: PRESENT: conjunctiva pale, EOMI, scleral icterus. ABSENT: conjunctival injection, conjunctiva pink, nystagmus, periorbital swelling Mouth exam: PRESENT: dry mucosa, neck supple, tongue midline. ABSENT: laceration, moist Neck exam: ABSENT: carotid bruit, JVD, lymphadenopathy, thyromegaly, tracheal deviation, tracheostomy Respiratory exam: PRESENT: decreased breath sounds, prolonged expiratory phas, rales, rhonchi, symmetrical, unlabored, wheezes. ABSENT: accessory muscle use, chest wall tenderness, clear to auscultation negrito, crackles, retraction, stridor , tachypnea Cardiovascular exam: PRESENT: RRR, +S1, +S2. ABSENT: rubs Pulses: PRESENT: normal radial pulses GI/Abdominal exam: PRESENT: normal bowel sounds, soft. ABSENT: distended, guarding, mass, organolmegaly, rebound, tenderness Extremities exam: ABSENT: clubbing, joint swelling Musculoskeletal exam: ABSENT: deformity, dislocation Neurological exam: PRESENT: alert, awake Psychiatric exam: PRESENT: normal mood Skin exam: PRESENT: dry, warm Results Laboratory Results: 05/07/17 05:39 05/07/17 05:39 Impressions: Chest X-Ray 05/06/17 03:28 IMPRESSION: Pulmonary vascular congestion. 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 Is this a current diagnosis for this admission?: Yes Plan: asbestos exsposure (3) COPD exacerbation Is this a current diagnosis for this admission?: Yes Plan: will add lama ---> spiriva Generic Name Dose Route Start Last Admin Trade Name Freq PRN Reason Stop Dose Admin Levalbuterol HCl 1.25 mg 05/07/17 08:00 05/07/17 08:17 Xopenex Neb 1.25 Mg/3 Ml Ampul NEB 06/06/17 07:59 1.25 mg RTQ6 CHU Fluticasone Propionate 2 spray 05/06/17 10:00 05/07/17 09:13 Flonase Nasal [place] 50 Mcg/[place] 16 Gm NASL 06/05/17 09:59 2 spray Q12 CHU Budesonide 0.5 mg 05/07/17 20:00 Pulmicort Neb 0.5 Mg/2 Ml Ampul NEB 06/06/17 19:59 RTQ12 CHU Prednisone 20 mg 05/06/17 18:00 05/07/17 09:12 Deltasone 20 Mg Tablet PO 06/05/17 17:59 20 mg BID CHU Albuterol 2 puff 05/06/17 05:54 Ventolin Hfa 8 Gm Mdi (1 Mdi/Er Disp) IH 06/05/17 05:53 Q4HP PRN SHORTNESS OF BREATH Acetylcysteine 600 mg 05/07/17 08:00 05/07/17 08:18 Mucomist 20% Soln 800 Mg/4 Ml NEB 06/06/17 07:59 600 mg RTBID CHU Levofloxacin/Dextrose 500 mg in 100 mls @ 100 mls/hr 05/07/17 11:00 Levaquin Rtu 500mg/D5w 100 Ml Premix IV 05/14/17 10:59 NOW CHU add avaps12 rr tv 450 i 1 rise 5 epap 5 p min 5 p max12
[2017-05-09] MEDS: AMLODIPINE BESYLATE 10 MG TABLET PO SCH (12:58)
[2017-05-09] MEDS: BENAZEPRIL HCL 20 MG TABLET PO SCH (12:58)
[2017-05-09] MEDS ORDERED: CALCIUM CARBONATE 500 MG TAB.CHEW PO PRN ×2 (13:45→14:05)
[2017-05-09] MEDS: CALCIUM CARBONATE 500 MG TAB.CHEW PO PRN (15:53)
[2017-05-09] MEDS ORDERED: TRAMADOL HCL 50 MG TABLET PO PRN (16:25)
[2017-05-09] MEDS ORDERED: DOCUSATE SODIUM 100 MG CAPSULE PO PRN (16:25)
[2017-05-09] MEDS ORDERED: DIAZEPAM 5 MG TABLET PO PRN (16:25)
[2017-05-09] MEDS ORDERED: FUROSEMIDE 40 MG TABLET PO SCH (18:00)
[2017-05-09] MEDS: ATORVASTATIN CALCIUM 20 MG TABLET PO SCH ×2 (21:14→21:16)
[2017-05-09] MEDS: MONTELUKAST SODIUM 10 MG TABLET PO SCH (21:15)
[2017-05-09] MEDS ORDERED: ATORVASTATIN CALCIUM 20 MG TABLET PO SCH (22:00)
[2017-05-10] MEDS: LEVALBUTEROL HCL NEB 1.25 MG/3 ML AMPUL NEB SCH ×4 (02:33→20:25)
[2017-05-10] MEDS: LEVOTHYROXINE SODIUM 0.025 MG TABLET PO SCH (05:27)
[2017-05-10] MEDS: BUDESONIDE NEB 0.5 MG/2 ML AMPUL NEB SCH ×2 (07:58→20:25)
[2017-05-10] MEDS: ACETYLCYSTEINE 20% SOLN 800 MG/4 ML VIAL.NEB NEB SCH ×2 (07:58→20:25)
[2017-05-10] MEDS: FUROSEMIDE 40 MG TABLET PO SCH (08:39)
[2017-05-10] MEDS: CELECOXIB 200 MG CAPSULE PO SCH (08:39)
[2017-05-10] MEDS: MULTIVITAMIN TABLET PO SCH (08:40)
[2017-05-10] MEDS: PREDNISONE 20 MG TABLET PO SCH ×2 (08:40→18:15)
[2017-05-10] MEDS: METOPROLOL SUCCINATE 25 MG TAB.SR.24H PO SCH (08:40)
[2017-05-10] MEDS: FLUTICASONE NASAL SPRAY 50 MCG/SPRY 120 SPRAY/16 GM NASL SCH ×2 (08:41→22:22)
[2017-05-10] MEDS: CYANOCOBALAMIN (VITAMIN B-12) 1,000 MCG TABLET PO SCH (08:41)
[2017-05-10] MEDS ORDERED: ALBUTEROL SULFATE HFA (90 MCG/PUFF) 200 PUFF/8.5 GM MDI IH PRN (09:00)
[2017-05-10] MEDS ORDERED: (PENDING PHARMACY ID) (Cyanocobalamin (Vitamin B-12) [Vitamin B12] 2,500 MCG) PO SCH (10:00)
[2017-05-10] MEDS ORDERED: CALCIUM CARB PO SCH (10:00)
[2017-05-10] MEDS ORDERED: VITAMIN D3 PO SCH (10:00)
[2017-05-10] MEDS ORDERED: VIT K1 PO SCH (10:00)
--- NOTE | 2017-05-10 12:41 | PDOC PROGRESS REPORT ---
Subjective Progress Note for:: 05/10/17 Subjective:: I had a good sleep last night Reason For Visit: COPD EXACERBATION PNEUMONIA Physical Exam Vital Signs: Temp Pulse Resp BP Pulse Ox 98.2 F 82 14 126/59 H 96 05/10/17 07:28 05/10/17 07:58 05/10/17 07:58 05/10/17 07:28 05/10/17 07:58 Intake & Output 05/09/17 05/10/17 05/11/17 06:59 06:59 06:59 Intake Total 1308 1510 Output Total 500 Balance 1308 1010 Weight 70.3 kg 68.9 kg General appearance: PRESENT: no acute distress, cooperative, disheveled, obese. ABSENT: mild distress, morbidly obese, severe distress Head exam: PRESENT: atraumatic, normocephalic Eye exam: PRESENT: conjunctiva pale, EOMI. ABSENT: conjunctival injection, conjunctiva pink, nystagmus, periorbital swelling, scleral icterus Mouth exam: PRESENT: moist, neck supple, tongue midline. ABSENT: dry mucosa, laceration Neck exam: ABSENT: carotid bruit, JVD, lymphadenopathy, thyromegaly, tracheal deviation, tracheostomy Respiratory exam: PRESENT: crackles, decreased breath sounds, prolonged expiratory phas, rhonchi, symmetrical, unlabored, wheezes. ABSENT: accessory muscle use, chest wall tenderness, clear to auscultation negrito, rales, retraction , stridor, tachypnea Cardiovascular exam: PRESENT: RRR, +S1, +S2 Pulses: PRESENT: normal radial pulses GI/Abdominal exam: PRESENT: normal bowel sounds, soft. ABSENT: distended, guarding, mass, organolmegaly, rebound, tenderness Extremities exam: ABSENT: clubbing, joint swelling Musculoskeletal exam: ABSENT: deformity, dislocation Neurological exam: PRESENT: alert, awake Psychiatric exam: PRESENT: normal mood Skin exam: PRESENT: dry, warm Results Laboratory Results: 05/07/17 05:39 05/07/17 05:39 Impressions: Chest X-Ray 05/06/17 03:28 IMPRESSION: Pulmonary vascular congestion. 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
[2017-05-10] MEDS: AMLODIPINE BESYLATE 10 MG TABLET PO SCH (12:56)
[2017-05-10] MEDS: BENAZEPRIL HCL 20 MG TABLET PO SCH (12:56)
[2017-05-10] MEDS: LEVOFLOXACIN 250 MG/D5W RTU 250 MG/50 ML RTUPB IV SCH (12:58)
[2017-05-10] MEDS: CALCIUM CARBONATE 500 MG TAB.CHEW PO PRN ×3 (15:35→23:13)
[2017-05-10] MEDS: MAG HYDROX/AL HYDROX/SIMETH SUSP 30 ML UDCUP PO PRN (15:35)
[2017-05-10] MEDS: MONTELUKAST SODIUM 10 MG TABLET PO SCH (22:22)
[2017-05-10] MEDS: ATORVASTATIN CALCIUM 20 MG TABLET PO SCH (22:22)
[2017-05-11] MEDS: LEVALBUTEROL HCL NEB 1.25 MG/3 ML AMPUL NEB SCH ×2 (02:01→08:15)
[2017-05-11] MEDS: LEVOTHYROXINE SODIUM 0.025 MG TABLET PO SCH (05:26)
[2017-05-11] MEDS ORDERED: PREDNISONE 20 MG TABLET PO SCH (08:03)
[2017-05-11] MEDS ORDERED: AMLODIPINE BESYLATE 10 MG TABLET PO SCH (08:03)
[2017-05-11] MEDS: BUDESONIDE NEB 0.5 MG/2 ML AMPUL NEB SCH (08:16)
[2017-05-11] MEDS: FLUTICASONE NASAL SPRAY 50 MCG/SPRY 120 SPRAY/16 GM NASL SCH (09:38)
[2017-05-11] MEDS: MULTIVITAMIN TABLET PO SCH (09:38)
[2017-05-11] MEDS: CYANOCOBALAMIN (VITAMIN B-12) 1,000 MCG TABLET PO SCH (09:38)
[2017-05-11] MEDS: FUROSEMIDE 40 MG TABLET PO SCH (09:38)
[2017-05-11] MEDS: METOPROLOL SUCCINATE 25 MG TAB.SR.24H PO SCH (09:38)
[2017-05-11] MEDS: CELECOXIB 200 MG CAPSULE PO SCH (09:39)
[2017-05-11] MEDS ORDERED: LEVOFLOXACIN 250 MG TABLET PO SCH (10:00)
[2017-05-11] MEDS ORDERED: PREDNISONE 10 MG TABLET PO SCH (10:00)
[2017-05-11 10:40] VITALS: BP 128/66
[2017-05-11] MEDS ORDERED: AMLODIPINE BESYLATE 5 MG TABLET PO SCH (12:00)
[2017-05-11] MEDS ORDERED: BENAZEPRIL HCL 20 MG TABLET PO SCH (12:00)
--- NOTE | 2017-05-12 10:28 | PDOC PROGRESS REPORT ---
Subjective Progress Note for:: 05/09/17 Subjective:: Patient admitted for COPD exacerbation due to acute bronchitis. Patient states that she is able to bring up her mucus since she is been on the Mucomyst. Patient had a bowel movement. She is feeling a little better. Patient states the breathing is getting better but she isn't quite there yet. Reason For Visit: COPD EXACERBATION PNEUMONIA Physical Exam Vital Signs: Temp Pulse Resp BP Pulse Ox 98.1 F 83 18 111/53 L 95 05/09/17 15:30 05/09/17 20:00 05/09/17 20:00 05/09/17 15:30 05/09/17 20:00 Intake & Output 05/08/17 05/09/17 05/10/17 06:59 06:59 06:59 Intake Total 1648 1308 1150 Balance 1648 1308 1150 Weight 71.8 kg 70.3 kg General appearance: PRESENT: no acute distress, obese, other - elderly Head exam: PRESENT: normocephalic Eye exam: PRESENT: EOMI. ABSENT: scleral icterus Ear exam: PRESENT: normal external ear exam Mouth exam: PRESENT: moist Neck exam: ABSENT: carotid bruit, JVD, lymphadenopathy, thyromegaly Respiratory exam: PRESENT: clear to auscultation negrito, rhonchi - scattered, unlabored. ABSENT: rales Cardiovascular exam: PRESENT: RRR. ABSENT: diastolic murmur, rubs, systolic murmur Pulses: PRESENT: normal dorsalis pedis pul Vascular exam: PRESENT: normal capillary refill GI/Abdominal exam: PRESENT: normal bowel sounds, soft. ABSENT: distended, guarding, mass, organolmegaly, rebound, tenderness Rectal exam: PRESENT: deferred Extremities exam: PRESENT: full ROM. ABSENT: calf tenderness, clubbing, pedal edema Neurological exam: PRESENT: alert, awake, oriented to person, oriented to place , oriented to time, oriented to situation, CN II-XII grossly intact. ABSENT: motor sensory deficit Psychiatric exam: PRESENT: appropriate affect, normal mood. ABSENT: homicidal ideation, suicidal ideation Skin exam: PRESENT: dry, intact, warm. ABSENT: cyanosis, rash Results Laboratory Results: 05/07/17 05:39 05/07/17 05:39 Impressions: Chest X-Ray 05/06/17 03:28 IMPRESSION: Pulmonary vascular congestion. 2011 [employer]- All Rights Reserved Assessment & Plan - Diagnosis (1) Acute bronchitis Is this a current diagnosis for this admission?: Yes Plan: Patient with acute bronchitis most likely viral in nature as patient was having rhinorrhea, cough and low-grade fever. Patient is flu negative. . No growth on blood cultures. Continues to be afebrile. Will continue with nebs, antibiotics, oral steroids and flutter valve. (2) Acute respiratory failure with hypoxia Is this a current diagnosis for this admission?: Yes Plan: Patient lowest saturation was 91 on supplemental oxygen. This is most likely due to her COPD exacerbation from acute viral bronchitis. Continue with nebs, p.o. steroids, but will decrease predinisone dose due to dyspepsia. (3) COPD exacerbation Is this a current diagnosis for this admission?: Yes Plan: Continue nebs, steroids and antibiotics. (4) Pulmonary nodules Is this a current diagnosis for this admission?: Yes Plan: Is known to have pulmonary nodules. She does follow with Dr. Luna. This was discussed with Dr. Luna today who stated that he discussed the option of a PET scan. Patient will need follow up with further test on discharge. (5) HTN (hypertension) Qualifiers: Hypertension type: essential hypertension Qualified Code(s): I10 - Essential (primary) hypertension Is this a current diagnosis for this admission?: Yes Plan: Patient continue on her home medications with holding parameters. (6) Acute sinusitis Qualifiers: Sinusitis location: maxillary Is this a current diagnosis for this admission?: Yes Plan: Continue flonase, singulair and levaquin. Patient will be referred to ENT on discharge for dizziness. (7) Constipation Qualifiers: Constipation type: unspecified constipation type Qualified Code(s): K59.00 - Constipation, unspecified Is this a current diagnosis for this admission?: Yes Plan: Patient given biscodyl and sorbitol. Resolved. - Time Time Spent with patient: Less than 15 minutes Anticipated discharge: Home with Homehealth Within: within 48 hours - Inpatient Certification Medical Necessity: Need for Nebulizer Therapy and Monitoring of Response, Need for IV Antibiotics
--- NOTE | 2017-05-12 10:47 | PDOC PROGRESS REPORT ---
Subjective Progress Note for:: 05/10/17 Subjective:: Patient admitted for COPD exacerbation due to acute bronchitis. Patient states that she is able to bring up her mucus since she is been on the Mucomyst. Patient feeling a little better. She is still a little a little weak. Patient states that the stinky stuff (mucomyst) is working. Reason For Visit: COPD EXACERBATION PNEUMONIA Physical Exam Vital Signs: Temp Pulse Resp BP Pulse Ox 98.1 F 87 22 H 109/57 L 94 05/10/17 19:32 05/10/17 19:35 05/10/17 19:35 05/10/17 19:35 05/10/17 19:35 Intake & Output 05/09/17 05/10/17 05/11/17 06:59 06:59 06:59 Intake Total 1308 1510 623 Output Total 500 Balance 1308 1010 623 Weight 70.3 kg 68.9 kg General appearance: PRESENT: no acute distress, other Head exam: PRESENT: normocephalic Eye exam: PRESENT: EOMI. ABSENT: scleral icterus Ear exam: PRESENT: normal external ear exam Mouth exam: PRESENT: moist Neck exam: ABSENT: carotid bruit, JVD, lymphadenopathy, thyromegaly Respiratory exam: PRESENT: clear to auscultation negrito. ABSENT: rales, rhonchi, wheezes Cardiovascular exam: PRESENT: RRR. ABSENT: diastolic murmur, rubs, systolic murmur GI/Abdominal exam: PRESENT: normal bowel sounds, soft. ABSENT: distended, guarding, mass, organolmegaly, rebound, tenderness Rectal exam: PRESENT: deferred Extremities exam: PRESENT: full ROM. ABSENT: calf tenderness, clubbing, pedal edema Neurological exam: PRESENT: alert, awake, oriented to person, oriented to place , oriented to time, oriented to situation, CN II-XII grossly intact. ABSENT: motor sensory deficit Psychiatric exam: PRESENT: appropriate affect, normal mood. ABSENT: homicidal ideation, suicidal ideation Skin exam: PRESENT: dry, intact, warm. ABSENT: cyanosis, rash Results Laboratory Results: 05/07/17 05:39 05/07/17 05:39 Impressions: Chest X-Ray 05/06/17 03:28 IMPRESSION: Pulmonary vascular congestion. 2010 [employer]- All Rights Reserved Assessment & Plan - Diagnosis (1) Acute bronchitis Is this a current diagnosis for this admission?: Yes Plan: Patient with acute bronchitis most likely viral in nature as patient was having rhinorrhea, cough and low-grade fever. Patient is flu negative. . No growth on blood cultures. Continues to be afebrile. Continue with nebs, antibiotics, oral steroids and flutter valve. (2) Acute respiratory failure with hypoxia Is this a current diagnosis for this admission?: Yes Plan: Patient lowest saturation was 91 on supplemental oxygen. This is most likely due to her COPD exacerbation from acute viral bronchitis. Continue with nebs, p.o. steroids, but will decrease predinisone dose due to dyspepsia. (3) COPD exacerbation Is this a current diagnosis for this admission?: Yes Plan: Continue nebs, steroids and antibiotics. (4) Pulmonary nodules Is this a current diagnosis for this admission?: Yes Plan: Is known to have pulmonary nodules. She does follow with Dr. Luna. Patient worrell a CT 04/29/17. Patient with pulmonary nodules and ground glass. Patient will need a PET/CT scan post discharge. (5) HTN (hypertension) Qualifiers: Hypertension type: essential hypertension Qualified Code(s): I10 - Essential (primary) hypertension Is this a current diagnosis for this admission?: Yes Plan: Patient continue on her home medications with holding parameters. (6) Acute sinusitis Qualifiers: Sinusitis location: maxillary Is this a current diagnosis for this admission?: Yes Plan: Continue flonase, singulair and levaquin. Patient will be referred to ENT on discharge for dizziness. Patient is not dizzy today. (7) Constipation Qualifiers: Constipation type: unspecified constipation type Qualified Code(s): K59.00 - Constipation, unspecified Is this a current diagnosis for this admission?: Yes Plan: Resolved. - Time Time Spent with patient: Less than 15 minutes Anticipated discharge: Home with Homehealth Within: within 72 hours - Inpatient Certification Medical Necessity: Need for Nebulizer Therapy and Monitoring of Response, Need for IV Antibiotics
--- NOTE | 2017-05-12 11:03 | PDOC DISCHARGE SUMMARY ---
General - Admit/Disc Date/PCP Admission Date/Primary Care Provider: 05/06/17 06:03 NORMA AKERS MD Discharge Date: 05/11/17 - Discharge Diagnosis (1) Acute bronchitis Is this a current diagnosis for this admission?: Yes (2) Acute respiratory failure with hypoxia Is this a current diagnosis for this admission?: Yes (3) COPD exacerbation Is this a current diagnosis for this admission?: Yes (4) Pulmonary nodules Is this a current diagnosis for this admission?: Yes (5) HTN (hypertension) Is this a current diagnosis for this admission?: Yes (6) Acute sinusitis Is this a current diagnosis for this admission?: Yes (7) Constipation Is this a current diagnosis for this admission?: Yes - Additional Information Resuscitation Status: Full Code Discharge Diet: As Tolerated Discharge Activity: Activity As Tolerated Prescriptions: Ipratropium/Albuterol Sulfate [Duoneb 3 ml Ampul] 3 ml NEB NOW PRN #90 vial.neb PRN Reason: For Wheezing Levofloxacin [Levaquin 250 mg Tablet] 250 mg PO DAILY #5 tablet Home Medications: Amlodipine Besylate/Benazepril [Lotrel 10-20 mg Capsule] 1 cap PO DAILY Budesonide/Formoterol Fumarate [Symbicort HFA 160-4.5 mcg Inhaler 6 gm] 2 puff IH BID 05/06/17 Calcium Carb/Vitamin D3/Vit K1 [Viactiv Soft Chew] 1 tab PO DAILY 05/06/17 Celecoxib [Celebrex 200 mg Capsule] 200 mg PO DAILY 05/06/17 Cyanocobalamin (Vitamin B-12) [Vitamin B12] 2,500 mcg PO DAILY 05/06/17 Diazepam [Valium 5 mg Tablet] 5 mg PO DAILYP PRN 05/06/17 Docusate Sodium [Colace 100 mg Capsule] 100 mg PO BIDP PRN 05/06/17 Furosemide [Lasix 40 mg Tablet] 40 mg PO QPM 05/06/17 Levothyroxine Sodium [Synthroid] 25 mcg PO DAILY 05/06/17 Loratadine [Claritin 10 mg Tablet] 10 mg PO DAILY 05/06/17 Multivit-Min/Iron/Folic/Lutein [Centrum Silver Women Tablet] 1 tab PO DAILY Rosuvastatin Calcium [Crestor 10 mg Tablet] 10 mg PO DAILY 05/06/17 Tiotropium Dorsey [Spiriva Handihaler 5 Cap/Kit (18 Mcg/Cap)] 2 puff IH QAM Tramadol HCl [Ultram 50 mg Tablet] 50 mg PO BIDP PRN 05/06/17 Fluticasone Propionate [Flonase Nasal [place] 50 Mcg/[place] 16 gm] 2 spray NASL Q12 spray.pump 05/11/17 Ipratropium/Albuterol Sulfate [Duoneb 3 ml Ampul] 3 ml NEB NOW PRN #90 vial.neb 05/11/17 Levofloxacin [Levaquin 250 mg Tablet] 250 mg PO DAILY #5 tablet 05/11/17 History of Present Illness History of Present Illness: BERRY JAVED is a 81 year old female with history of COPD and acute on chronic hypoxic respiratory failure on home oxygen who presented with a 1 day history of rhinorrhea with postnasal drip and cough and fever along with shortness of breath. Patient was admitted for acute on chronic hypoxic respiratory failure, respiratory distress and acute bronchitis. Please refer to H&P dictated by Dr. Mcelroy for complete details. Hospital Course Hospital Course: She was admitted for COPD exacerbation thought to be possibly due to early pneumonia. However patient had a viral symptoms which consisted of fever, rhinorrhea and cough. This is more concerning for a acute bronchitis resulting in acute respiratory distress with worsening hypoxemia. Patient is already on supplemental oxygen she was continued on this. Patient was started on steroids nebs and antibiotics. Patient later on was started on Mucomyst as she was having some congestion and was not able to cough it up. Patient did show some improvement with the Mucomyst. Patient was on steroids however this was decreased as patient was experiencing dyspepsia. Patient continued to show gradual improvement during hospitalization. Patient family requested a nebulizer machine which was given to her along with DuoNeb's to take 3 times daily at home. Patient with pulmonary nodules which were seen on previous CT scan. Patient is to follow-up to have a PET/CT scan post discharge. Patient also thought to have acute sinusitis for which she was developing some symptoms of dizziness. Patient was treated with Flonase Singulair and Levaquin. Patient is no longer feeling dizzy however she was referred to ENT for further evaluation on discharge. She also has other medical conditions which were stable his hospitalization. Patient has show significant improvement and is eating and states that she is ready to go home. Physical Exam Vital Signs: Temp Pulse Resp BP Pulse Ox 98.1 F 104 H 16 128/66 H 98 05/11/17 13:19 05/11/17 13:19 05/11/17 13:19 05/11/17 13:19 05/11/17 13:19 Intake & Output 05/11/17 05/12/17 05/13/17 06:59 06:59 06:59 Intake Total 923 710 Output Total 0 Balance 923 710 Weight 68.1 kg General appearance: PRESENT: no acute distress, well-developed, well-nourished, other - Elderly Head exam: PRESENT: normocephalic Eye exam: PRESENT: EOMI. ABSENT: scleral icterus Ear exam: PRESENT: normal external ear exam Mouth exam: PRESENT: moist Neck exam: ABSENT: carotid bruit, JVD, lymphadenopathy, thyromegaly Respiratory exam: PRESENT: unlabored, wheezes - Faint wheezing. ABSENT: rales, rhonchi Cardiovascular exam: PRESENT: RRR. ABSENT: diastolic murmur, rubs, systolic murmur Pulses: PRESENT: normal dorsalis pedis pul GI/Abdominal exam: PRESENT: normal bowel sounds, soft. ABSENT: distended, guarding, mass, organolmegaly, rebound, tenderness Rectal exam: PRESENT: deferred Extremities exam: PRESENT: full ROM. ABSENT: calf tenderness, clubbing, pedal edema Neurological exam: PRESENT: alert, awake, oriented to person, oriented to place , oriented to time, oriented to situation, CN II-XII grossly intact. ABSENT: motor sensory deficit Psychiatric exam: PRESENT: appropriate affect, normal mood. ABSENT: homicidal ideation, suicidal ideation Skin exam: PRESENT: dry, intact, warm. ABSENT: cyanosis, rash Results Laboratory Results: 05/07/17 05:39 05/07/17 05:39 Impressions: Chest X-Ray 05/06/17 03:28 IMPRESSION: Pulmonary vascular congestion. 2010 [employer]- All Rights Reserved Plan Time Spent: Greater than 30 Minutes - Patient is being discharged home on Levaquin to complete 10 days of treatment as as her acute bronchitis or viral illness could develop into a pneumonia. Patient is not continued on any steroids. Patient was discharged with nebulizer treatments and a nebulizer. Patient is to follow-up for PET CT scan as outpatient for the nodule seen on CT scan.
== END 2017-05-11 13:25 | disposition home health service (06) | DRG 190 ==
LOC: ER 03:17 → EH 06:03 → 3S 09:08 → 4W 05-11 05:08
PROVIDERS: ADMIT Internal Medicine; ATTEND Internal Medicine
PROC: 3E0F73Z Introduction of Anti-inflammatory into Respiratory Tract, Via Natural or Artificial Opening (ICD-10-PCS; 2017-05-06)
PROC: 5A09357 Assistance with Respiratory Ventilation, Less than 24 Consecutive Hours, Continuous Positive Airway Pressure (ICD-10-PCS; principal; 2017-05-07)
DX: J44.0 Chronic obstructive pulmonary disease with (acute) lower respiratory infection (principal); J96.21 Acute and chronic respiratory failure with hypoxia; J44.1 Chronic obstructive pulmonary disease with (acute) exacerbation; M19.90 Unspecified osteoarthritis, unspecified site; J20.8 Acute bronchitis due to other specified organisms; J92.9 Pleural plaque without asbestos; J01.00 Acute maxillary sinusitis, unspecified; K59.00 Constipation, unspecified; I10 Essential (primary) hypertension; Z77.090 Contact with and (suspected) exposure to asbestos; R91.8 Other nonspecific abnormal finding of lung field; Z90.49 Acquired absence of other specified parts of digestive tract; Z86.711 Personal history of pulmonary embolism; Z99.81 Dependence on supplemental oxygen; Z88.0 Allergy status to penicillin; Z88.8 Allergy status to other drugs, medicaments and biological substances; J34.89 Other specified disorders of nose and nasal sinuses; Z79.51 Long term (current) use of inhaled steroids; Z87.891 Personal history of nicotine dependence; Z98.51 Tubal ligation status
CPT/HCPCS: 36415; 71010; 80048; 80053; 81001; 82803; 83735; 83880; 84484; 85025; 87040; 87804; 93005; 93010; 94640; 94667; 94668; 94799; 96374; 99285; G8978-GP; G8979-GP; G8980-GP; G8987-GO; G8988-GO; G8989-GO; J0692; J1644; J1956; J2930; J3490; J7512; J7620

== ENCOUNTER 2017-05-13 12:03 | Inpatient (IN) | payer MEDICARE, MEDICAID ==
[2017-05-13 12:46] LABS: HEMATOCRIT 46.8 % (36.0-47.0); HEMOGLOBIN 15.9 g/dL (12.0-15.5); MEAN CORPUSCULAR HEMOGLOBIN 29.7 pg (27.0-33.4); MEAN CORPUSCULAR VOLUME 87 fl (80-97); PLATELET COUNT 434 10^3/uL (150-450); RED BLOOD COUNT 5.38 10^6/uL (3.72-5.28); RED CELL DISTRIBUTION WIDTH 12.8 % (11.5-14.0); WHITE BLOOD COUNT 17.4 10^3/uL (4.0-10.5)
--- NOTE | 2017-05-13 12:52 | RADIOLOGY REPORT (SQ) ---
EXAM DESCRIPTION: CHEST SINGLE VIEW COMPLETED DATE/TIME: 05/13/2017 12:35 pm REASON FOR STUDY: weakness, sob, copd COMPARISON: 05/06/2017 EXAM PARAMETERS: NUMBER OF VIEWS: One view. TECHNIQUE: Single frontal radiographic view of the chest acquired. RADIATION DOSE: NA LIMITATIONS: None. FINDINGS: LUNGS AND PLEURA: Stable chronic lung change without new opacities, masses or pneumothorax . No pleural effusion. MEDIASTINUM AND HILAR STRUCTURES: No masses. Contour normal. HEART AND VASCULAR STRUCTURES: Heart normal in size. Normal vasculature. BONES: No acute findings. HARDWARE: None in the chest. OTHER: No other significant finding. IMPRESSION: NO ACUTE RADIOGRAPHIC FINDING IN THE CHEST. TECHNICAL DOCUMENTATION: JOB ID: [id number] 2015 [employer]- All Rights Reserved
[2017-05-13 12:56] LABS: APPEARANCE,URINE CLEAR; BILIRUBIN,URINE NEGATIVE (NEGATIVE); COLOR,URINE YELLOW; GLUCOSE, URINE NEGATIVE (NEGATIVE); KETONES,URINE NEGATIVE (NEGATIVE); LEUKOCYTE ESTERASE,URINE NEGATIVE (NEGATIVE); NITRITE,URINE NEGATIVE (NEGATIVE); PROTEIN,URINE NEGATIVE (NEGATIVE); URINE SPECIFIC GRAVITY 1.008; UROBILINOGEN,URINE NEGATIVE mg/dL (<2.0)
[2017-05-13 13:00] LABS: ALANINE AMINOTRANSFERASE 39 U/L (9-52); ALBUMIN 4.1 g/dL (3.5-5.0); ALKALINE PHOSPHATASE 46 U/L (38-126); ANION GAP 11 (5-19); ASPARTATE AMINO TRANSFERASE 38 U/L (14-36); BILIRUBIN,DIRECT 0.2 mg/dL (0.0-0.4); BILIRUBIN,TOTAL 0.7 mg/dL (0.2-1.3); BLOOD UREA NITROGEN 56 mg/dL (7-20); CARBON DIOXIDE 39 mmol/L (22-30); CHLORIDE 73 mmol/L (98-107); CREATINE KINASE 50 U/L (30-135); GLUCOSE 95 mg/dL (75-110); MAGNESIUM 2.2 mg/dL (1.6-2.3); POTASSIUM 3.3 mmol/L (3.6-5.0); SODIUM 123.1 mmol/L (137-145); TOTAL PROTEIN 6.8 g/dL (6.3-8.2)
[2017-05-13 13:08] LABS: ABSOLUTE LYMPHOCYTES# (MANUAL) 3.8 10^3/uL (0.5-4.7); ABSOLUTE MONOCYTES # (MANUAL) 1.7 10^3/uL (0.1-1.4); ABSOLUTE NEUTROPHILS# (MANUAL) 11.7 10^3/uL (1.7-8.2); BAND NEUTROPHILS % (MANUAL) 2 % (3-5); BASOPHILS % (MANUAL) 0 % (0-2); EOSINOPHILS % (MANUAL) 1 % (0-6); LYMPHOCYTES % (MANUAL) 17 % (13-45); MONOCYTES % (MANUAL) 10 % (3-13); SEGMENTED NEUTROPHILS % (MAN) 65 % (42-78); TOTAL CELLS COUNTED 100
[2017-05-13 13:09] LABS: PLATELET COMMENT ADEQUATE; RBC MORPHOLOGY COMMENT NORMO-CYTIC/CHROMIC; TOXIC GRANULATION SLIGHT; TOXIC VACUOLATION PRESENT
[2017-05-13 13:12] LABS: TROPONIN I 0.018 ng/mL
[2017-05-13 13:19] LABS: CALCIUM 12.4 mg/dL (8.4-10.2)
[2017-05-13] MEDS ORDERED: NORMAL SALINE 1000 ML 1,000 ML IV ONE (13:23)
--- NOTE | 2017-05-13 13:34 | ER Document Report ---
ED Dizziness/Weakness - General Chief Complaint: General Weakness Stated Complaint: WEAKNESS/FATIGUE Time Seen by Provider: 05/13/17 12:21 Mode of Arrival: Ambulatory Information source: Patient Notes: Patient is an 81 year old female to the emergency department today for generalized weakness and fatigue for the past 3 days. Patient was recently admitted here for bronchitis, COPD exacerbation and was discharged on Levaquin. Patient states that she felt much better whenever she was discharged over the last 3 days has declined. She also admits to a sore throat. Patient denies any increased coughing or shortness of breath, wheezing, just complains of fatigue and weakness. She denies any fevers or chills that she is noted. She denies any burning with urination or abdominal pain. TRAVEL OUTSIDE OF THE [place] IN LAST 30 DAYS: No - Related Data Allergies/Adverse Reactions: Penicillins Allergy (Verified 09/15/15 06:36) ITCHING pregabalin [From Lyrica] Adverse Reaction (Intermediate, Verified 09/15/15 06:36 ) "[place] Funny" Past Medical History - General Information source: Patient - Social History Smoking Status: Never Smoker Chew tobacco use (# tins/day): No Frequency of alcohol use: None Drug Abuse: None Family History: CAD, DM, Hypertension Patient has suicidal ideation: No Patient has homicidal ideation: No - Past Medical History Cardiac Medical History: Reports: Hx Hypertension Pulmonary Medical History: Reports: Hx Bronchitis, Hx COPD, Hx Pneumonia, Hx Respiratory Failure Endocrine Medical History: Denies: Hx Diabetes Mellitus Type 1 Renal/ Medical History: Denies: Hx End Stage Renal Disease, Hx Peritoneal Dialysis GI Medical History: Denies: Hx Cirrhosis, Hx Crohn's Disease, Hx Ulcerative Colitis Musculoskeltal Medical History: Reports Hx Arthritis, Denies Hx Gout Skin Medical History: Denies Hx Psoriasis Traumatic Medical History: Denies: Hx Traumatic Brain Injury Past Surgical History: Reports: Hx Cholecystectomy, Hx Tubal Ligation. Denies: Hx Hysterectomy - Immunizations Hx Diphtheria, Pertussis, Tetanus Vaccination: Yes Hx Pneumococcal Vaccination: 05/13/15 Review of Systems - Review of Systems Constitutional: See HPI EENT: See HPI Cardiovascular: No symptoms reported Respiratory: See HPI Gastrointestinal: No symptoms reported Genitourinary: No symptoms reported Female Genitourinary: No symptoms reported Musculoskeletal: No symptoms reported Skin: No symptoms reported Hematologic/Lymphatic: No symptoms reported Neurological/Psychological: No symptoms reported Physical Exam - Vital signs Vitals: BP 130/68 H 05/13/17 12:12 - Notes Notes: PHYSICAL EXAMINATION: GENERAL: weak appearing, but in no acute distress. HEAD: Atraumatic, normocephalic. EYES: Pupils equal round and reactive to light, extraocular movements intact, sclera anicteric, conjunctiva are normal. ENT: ear canals without erythema or foreign body, TMs pearly schmitz with good bony landmarks, nares patent, oropharynx clear without exudates. Moist mucous membranes. NECK: Normal range of motion, supple without lymphadenopathy LUNGS: CTAB and equal. No wheezes rales or rhonchi. HEART: Regular rate and rhythm without murmurs ABDOMEN: Soft, no tenderness. No guarding, no rebound BACK: no vertebral tenderness, normal ROM GI/: no CVA tenderness EXTREMITIES: Normal range of motion, no pitting edema. No cyanosis. NEUROLOGICAL: Cranial nerves grossly intact. Normal sensory/motor exams. PSYCH: Normal mood, normal affect. SKIN: Warm, Dry, normal turgor, no rashes or lesions noted Course - Re-evaluation Re-evalutation: 05/13/17 19:08 Patient had a leukocytosis of 17,000 with a bandemia, prolonged QTC on EKG and calcium of 12. levaquin needs to be stopped due to these findings as it can prolong QTC interval. Chest x-ray is negative for any acute pathology. Urinalysis is negative for infection. Dr. Salcido remembers pt and agrees to accept at this time for further workup and these findings. vitals are all stable and strep is pending. sodium is 122. 05/13/17 19:09 - Vital Signs Vital signs: Temp Pulse Resp BP Pulse Ox 98.0 F 96 14 122/44 L 93 05/13/17 16:33 05/13/17 16:33 05/13/17 16:33 05/13/17 16:33 05/13/17 16:33 - Laboratory Result Diagrams: 05/13/17 12:20 05/13/17 14:16 Laboratory results interpreted by me: 05/13/17 05/13/17 05/13/17 12:20 12:20 14:16 WBC 17.4 H RBC 5.38 H Hgb 15.9 H Band Neutrophils % 2 L Abs Neuts (Manual) 11.7 H Abs Monocytes (Manual) 1.7 H Sodium 123.1 L 122.9 L Potassium 3.3 L 3.1 L Chloride 73 L 75 L Carbon Dioxide 39 H 39 H BUN 56 H 51 H Creatinine 1.48 H 1.44 H Est GFR ( Amer) 41 L 42 L Est GFR (Non-Af Amer) 34 L 35 L Calcium 12.4 H* 11.9 H AST 38 H Discharge - Discharge Clinical Impression: Weakness, QT prolongation, Serum calcium elevated Condition: Stable Disposition: ADMITTED INPATIENT Admitting Provider: Hospitalist - Dr. Salcido Unit Admitted: Telemetry
[2017-05-13] MEDS ORDERED: MAG HYDROX/AL HYDROX/SIMETH SUSP 30 ML UDCUP PO PRN (14:08)
[2017-05-13] MEDS ORDERED: ONDANSETRON HCL INJ/PF 4 MG/2 ML SDV IV PRN (14:08)
[2017-05-13] MEDS ORDERED: NORMAL SALINE 1000 ML 1,000 ML IV PRN ×2 (14:08→17:05)
[2017-05-13] MEDS ORDERED: DOCUSATE SODIUM 100 MG CAPSULE PO PRN (14:15)
[2017-05-13] MEDS ORDERED: DIAZEPAM 5 MG TABLET PO PRN (14:15)
[2017-05-13 14:41] LABS: ANION GAP 9 (5-19); BLOOD UREA NITROGEN 51 mg/dL (7-20); CARBON DIOXIDE 39 mmol/L (22-30); CHLORIDE 75 mmol/L (98-107); CREATINE KINASE 37 U/L (30-135); GLUCOSE 91 mg/dL (75-110); POTASSIUM 3.1 mmol/L (3.6-5.0); SODIUM 122.9 mmol/L (137-145)
[2017-05-13 15:02] LABS: CALCIUM 11.9 mg/dL (8.4-10.2)
[2017-05-13] MEDS ORDERED: TAMSULOSIN HCL 0.4 MG CAP.SR.24H PO ONE (17:07)
[2017-05-13] MEDS: LANSOPRAZOLE 30 MG TAB.RAP.DR PO SCH (17:25)
[2017-05-13] MEDS ORDERED: FLUTICASONE NASAL SPRAY 50 MCG/SPRY 120 SPRAY/16 GM ONE (21:31)
[2017-05-13] MEDS ORDERED: NORMAL SALINE 1000 ML 500 ML IV ONE (21:46)
[2017-05-13] MEDS: FLUTICASONE NASAL SPRAY 50 MCG/SPRY 120 SPRAY/16 GM NASL SCH (21:47)
[2017-05-13] MEDS ORDERED: POTASSIUM CHLORIDE 10 MEQ TABLET.SA PO SCH (22:00)
[2017-05-14] MEDS: LANSOPRAZOLE 30 MG TAB.RAP.DR PO SCH ×2 (05:16→18:36)
[2017-05-14 06:12] LABS: HEMATOCRIT 38.2 % (36.0-47.0); MEAN CORPUSCULAR HEMOGLOBIN 29.4 pg (27.0-33.4); MEAN CORPUSCULAR HGB CONC 33.3 g/dL (32.0-36.0); MEAN CORPUSCULAR VOLUME 88 fl (80-97); PLATELET COUNT 387 10^3/uL (150-450); RED BLOOD COUNT 4.33 10^6/uL (3.72-5.28); WHITE BLOOD COUNT 13.1 10^3/uL (4.0-10.5)
[2017-05-14 06:24] LABS: HEMOGLOBIN 12.7 g/dL (12.0-15.5)
[2017-05-14 06:30] LABS: ALANINE AMINOTRANSFERASE 30 U/L (9-52); ALBUMIN 2.9 g/dL (3.5-5.0); ALKALINE PHOSPHATASE 34 U/L (38-126); ASPARTATE AMINO TRANSFERASE 25 U/L (14-36); BILIRUBIN,DIRECT 0.2 mg/dL (0.0-0.4); BILIRUBIN,TOTAL 0.6 mg/dL (0.2-1.3); BLOOD UREA NITROGEN 34 mg/dL (7-20); CALCIUM 10.2 mg/dL (8.4-10.2); CHLORIDE 94 mmol/L (98-107); GLUCOSE 81 mg/dL (75-110); SODIUM 133.4 mmol/L (137-145); TOTAL PROTEIN 5.1 g/dL (6.3-8.2)
[2017-05-14 06:39] LABS: ANION GAP 5 (5-19); CARBON DIOXIDE 34 mmol/L (22-30); POTASSIUM 3.9 mmol/L (3.6-5.0)
[2017-05-14 06:47] LABS: FREE T3 2.38 pg/mL (2.77-5.27); FREE T4 (FREE THYROXINE) 1.6 ng/dL (0.78-2.19)
[2017-05-14 07:01] LABS: THYROID STIMULATING HORMONE 1.81 uIU/mL (0.47-4.68)
--- NOTE | 2017-05-14 08:39 | RADIOLOGY REPORT (SQ) ---
EXAM DESCRIPTION: U/S RETROPERITON (RENAL/AORTA) COMPLETED DATE/TIME: 05/14/2017 7:24 am REASON FOR STUDY: acute renal failure COMPARISON: None. TECHNIQUE: Dynamic and static grayscale images acquired of the kidneys and bladder and recorded on P ACS. Additional selected color Doppler and spectral images recorded. LIMITATIONS: None. FINDINGS: RIGHT KIDNEY: Normal size. Normal echogenicity. No solid or suspicious masses. No hydronep hrosis. No calcifications. LEFT KIDNEY: Normal size. Normal echogenicity. No solid or suspicious masses. No hydronephrosis. No calcifications. BLADDER: Not seen, decompressed by a Fuentes catheter. OTHER FINDINGS: No other significant finding. IMPRESSION: 1. Normal sonographic appearance of the bilateral kidneys. Bladder not seen, decompress ed by Fuentes catheter. TECHNICAL DOCUMENTATION: JOB ID: [id number] 1200 [employer]- All Rights Reserved
--- NOTE | 2017-05-14 09:40 | EKG REPORT ---
SEVERITY:- ABNORMAL ECG - SINUS RHYTHM BORDERLINE INFERIOR Q WAVES PROLONGED QT INTERVAL : Confirmed by: Clifford Dempsey 14-May-2017 09:40:05
[2017-05-14] MEDS ORDERED: LEVOTHYROXINE SODIUM 0.025 MG TABLET PO SCH (10:00)
[2017-05-14] MEDS ORDERED: (PENDING PHARMACY ID) (Cyanocobalamin (Vitamin B-12) [Vitamin B12] 2,500 MCG) PO SCH (10:00)
[2017-05-14] MEDS: CYANOCOBALAMIN (VITAMIN B-12) 1,000 MCG TABLET PO SCH (11:09)
[2017-05-14] MEDS: LORATADINE 10 MG TABLET PO SCH (11:10)
[2017-05-14] MEDS: MULTIVITAMIN TABLET PO SCH (11:10)
[2017-05-14] MEDS: FLUTICASONE NASAL SPRAY 50 MCG/SPRY 120 SPRAY/16 GM NASL SCH ×2 (11:11→21:25)
[2017-05-14] MEDS ORDERED: BISACODYL 5 MG TABEC PO ONE ×2 (14:15→19:00)
[2017-05-14] MEDS ORDERED: ONDANSETRON HCL INJ/PF 4 MG/2 ML SDV IV PRN (14:30)
[2017-05-14] MEDS ORDERED: POLYETHYLENE GLYCOL 3350 POWDER 17 GM/1 PACKET PO ONE ×2 (14:30→19:00)
--- NOTE | 2017-05-14 17:39 | PDOC PROGRESS REPORT ---
Subjective Progress Note for:: 05/14/17 Subjective:: 81-year-old female who was recently admitted to the hospital with bronchitis and COPD exacerbation presented to the hospital with fatigue and weakness and was found to have hyponatremia and acute urinary retention. A Fuentes was placed and 800 cc of urine and. She has been constipated for a week. Reason For Visit: MALAISE,ELECTROLYTE DEARRAGEMENTS Physical Exam Vital Signs: Temp Pulse Resp BP Pulse Ox 97.7 F 86 18 119/51 L 93 05/14/17 11:33 05/14/17 11:33 05/14/17 11:33 05/14/17 11:33 05/14/17 17:33 Intake & Output 05/13/17 05/14/17 05/15/17 06:59 06:59 06:59 Intake Total 2704 Output Total 1475 Balance 1229 Weight 73.7 kg Additional comments: Elderly female sitting up in bed eating lunch not in acute distress Lungs: Clear to auscultation bilaterally normal respiratory effort Cardiac: S1-S2 regular no oral edema Abdomen: Soft, no focal tenderness normal bowel sounds, obese Skin: Warm and dry Neurologic: Awake and alert oriented 3 no facial droop speech is clear and fluent. Results Laboratory Results: 05/14/17 05:50 05/14/17 05:50 05/14/17 05/14/17 05/14/17 00:17 05:50 05:50 WBC 13.1 H RBC 4.33 Hgb 12.7 D Hct 38.2 MCV 88 MCH 29.4 MCHC 33.3 RDW 13.0 Plt Count 387 Sodium 127.5 L 133.4 L Potassium 3.9 Chloride 94 L Carbon Dioxide 34 H Anion Gap 5 BUN 34 H Creatinine 1.12 Est GFR ( Amer) 56 L Est GFR (Non-Af Amer) 47 L Glucose 81 Calcium 10.2 Magnesium 2.0 Total Bilirubin 0.6 AST 25 ALT 30 Alkaline Phosphatase 34 L Total Protein 5.1 L Albumin 2.9 L TSH Free T4 Free T3 pg/mL 05/14/17 05:50 WBC RBC Hgb Hct MCV MCH MCHC RDW Plt Count Sodium Potassium Chloride Carbon Dioxide Anion Gap BUN Creatinine Est GFR ( Amer) Est GFR (Non-Af Amer) Glucose Calcium Magnesium Total Bilirubin AST ALT Alkaline Phosphatase Total Protein Albumin TSH 1.81 Free T4 1.60 Free T3 pg/mL 2.38 L Impressions: Chest X-Ray 05/13/17 12:24 IMPRESSION: NO ACUTE RADIOGRAPHIC FINDING IN THE CHEST. Renal Ultrasound 05/14/17 00:00 IMPRESSION: 1. Normal sonographic appearance of the bilateral kidneys. Bladder not seen, decompressed by Fuentes catheter. Assessment & Plan - Diagnosis (1) Urinary retention with incomplete bladder emptying Is this a current diagnosis for this admission?: Yes Plan: Give her a trial of void. (2) Hyponatremia Is this a current diagnosis for this admission?: Yes Plan: Improving. (5) Constipation Qualifiers: Constipation type: unspecified constipation type Qualified Code(s): K59.00 - Constipation, unspecified Is this a current diagnosis for this admission?: Yes Plan: Laxatives and stool softeners. (6) HTN (hypertension) Qualifiers: Hypertension type: essential hypertension Qualified Code(s): I10 - Essential (primary) hypertension Is this a current diagnosis for this admission?: Yes Plan: Continue outpatient medications per - Time Time Spent with patient: 25-34 minutes
[2017-05-14] MEDS: DOCUSATE SODIUM 100 MG CAPSULE PO SCH (18:37)
[2017-05-15] MEDS: LEVOTHYROXINE SODIUM 0.025 MG TABLET PO SCH (05:31)
[2017-05-15] MEDS: LANSOPRAZOLE 30 MG TAB.RAP.DR PO SCH ×2 (05:31→17:28)
[2017-05-15 06:11] LABS: HEMATOCRIT 39.7 % (36.0-47.0); HEMOGLOBIN 13.1 g/dL (12.0-15.5); MEAN CORPUSCULAR HEMOGLOBIN 29.7 pg (27.0-33.4); MEAN CORPUSCULAR VOLUME 90 fl (80-97); PLATELET COUNT 394 10^3/uL (150-450); RED BLOOD COUNT 4.42 10^6/uL (3.72-5.28); RED CELL DISTRIBUTION WIDTH 13.2 % (11.5-14.0); WHITE BLOOD COUNT 11.7 10^3/uL (4.0-10.5)
[2017-05-15 06:37] LABS: ALANINE AMINOTRANSFERASE 29 U/L (9-52); ALBUMIN 3.3 g/dL (3.5-5.0); ALKALINE PHOSPHATASE 40 U/L (38-126); ANION GAP 7 (5-19); ASPARTATE AMINO TRANSFERASE 27 U/L (14-36); BILIRUBIN,DIRECT 0.2 mg/dL (0.0-0.4); BILIRUBIN,TOTAL 0.6 mg/dL (0.2-1.3); BLOOD UREA NITROGEN 18 mg/dL (7-20); CALCIUM 10.1 mg/dL (8.4-10.2); CARBON DIOXIDE 35 mmol/L (22-30); CHLORIDE 98 mmol/L (98-107); GLUCOSE 81 mg/dL (75-110); POTASSIUM 3.8 mmol/L (3.6-5.0); SODIUM 140.2 mmol/L (137-145); TOTAL PROTEIN 5.8 g/dL (6.3-8.2)
[2017-05-15 06:48] LABS: FREE T3 2.63 pg/mL (2.77-5.27); FREE T4 (FREE THYROXINE) 1.51 ng/dL (0.78-2.19)
[2017-05-15 07:01] LABS: THYROID STIMULATING HORMONE 2.01 uIU/mL (0.47-4.68)
--- NOTE | 2017-05-15 07:21 | PDOC H&P ---
History of Present Illness Admission Date/PCP: 05/13/17 14:20 NORMA AKERS MD Patient complains of: Weakness and not being able to urinate History of Present Illness: BERRY JAVED is a 81 year old female with a history of chronic hypoxic respiratory failure on home oxygen, COPD, hypothyroidism, hyperlipidema and hypertension presenting with complaint of weakness. Patient was recently discharge after being treated for acute viral bronchitis with congestion. Patient was treated with antibiotics, nebs and steroids. She was weaned off her steroids. Patient was doing well and discharge home. At home patient was not eating or drinking well. Patient was however taking her medications. Patient began getting weak and then could not get up today. When that aide went to the home, she advised that the patient be sent to the hospital. In the ED, patient was noted to be multiple electrolytes abnormalities, leukocytosis and profound weakness. Hospitalist was called to admit patient for further care. Past Medical History Cardiac Medical History: Reports: Hypertension Pulmonary Medical History: Reports: Bronchitis, Chronic Obstructive Pulmonary Disease (COPD), Pneumonia, Respiratory Failure Endocrine Medical History: Denies: Diabetes Mellitus Type 1 Renal/ Medical History: Denies: End Stage Renal Disease GI Medical History: Denies: Cirrhosis, Crohn's Disease, Ulcerative Colitis Musculoskeltal Medical History: Reports: Arthritis Denies: Gout Skin Medical History: Denies: Psoriasis Traumatic Medical History: Denies: Traumatic Brain Injury Hematology: Denies: Anemia, Sickle Cell Disease Past Surgical History Past Surgical History: Reports: Cholecystectomy, Tubal Ligation Denies: Amputation, Hysterectomy Social History Smoking Status: Never Smoker Frequency of Alcohol Use: None Hx Recreational Drug Use: No Drugs: None Hx Prescription Drug Abuse: No - Advance Directive Resuscitation Status: Full Code Family History Family History: CAD, DM, Hypertension Parental Family History Reviewed: No Children Family History Reviewed: No Sibling(s) Family History Reviewed.: No Medication/Allergy Home Medications: Amlodipine Besylate/Benazepril [Lotrel 10-20 mg Capsule] 1 cap PO DAILY Budesonide/Formoterol Fumarate [Symbicort HFA 160-4.5 mcg Inhaler 6 gm] 2 puff IH BID 05/06/17 Calcium Carb/Vitamin D3/Vit K1 [Viactiv Soft Chew] 1 tab PO DAILY 05/06/17 Celecoxib [Celebrex 200 mg Capsule] 200 mg PO DAILY 05/06/17 Cyanocobalamin (Vitamin B-12) [Vitamin B12] 2,500 mcg PO DAILY 05/06/17 Diazepam [Valium 5 mg Tablet] 5 mg PO DAILYP PRN 05/06/17 Docusate Sodium [Colace 100 mg Capsule] 100 mg PO BIDP PRN 05/06/17 Furosemide [Lasix 40 mg Tablet] 40 mg PO QPM 05/06/17 Levothyroxine Sodium [Synthroid] 25 mcg PO Q6AM 05/06/17 Loratadine [Claritin 10 mg Tablet] 10 mg PO DAILY 05/06/17 Multivit-Min/Iron/Folic/Lutein [Centrum Silver Women Tablet] 1 tab PO DAILY Rosuvastatin Calcium [Crestor 10 mg Tablet] 10 mg PO DAILY 05/06/17 Tiotropium [place] [Spiriva Handihaler 5 Cap/Kit (18 Mcg/Cap)] 2 puff IH QAM Tramadol HCl [Ultram 50 mg Tablet] 50 mg PO BIDP PRN 05/06/17 Fluticasone Propionate [Flonase Nasal [place] 50 Mcg/[place] 16 gm] 2 spray NASL Q12 spray.pump 05/11/17 Allergies/Adverse Reactions: Penicillins Allergy (Verified 09/15/15 06:36) ITCHING pregabalin [From Lyrica] Adverse Reaction (Intermediate, Verified 09/15/15 06:36 ) "[place]" Review of Systems Constitutional: PRESENT: weakness. ABSENT: chills, fever(s), headache(s), weight gain, weight loss Eyes: ABSENT: visual disturbances Ears: ABSENT: hearing changes Cardiovascular: ABSENT: chest pain, dyspnea on exertion, edema, orthropnea, palpitations Respiratory: PRESENT: cough. ABSENT: hemoptysis Gastrointestinal: ABSENT: abdominal pain, constipation, diarrhea, hematemesis, hematochezia, nausea, vomiting Genitourinary: ABSENT: dysuria, hematuria Musculoskeletal: PRESENT: muscle weakness. ABSENT: joint swelling Integumentary: ABSENT: rash, wounds Neurological: ABSENT: abnormal gait, abnormal speech, confusion, dizziness, focal weakness, syncope Psychiatric: ABSENT: anxiety, depression, homidical ideation, suicidal ideation Endocrine: ABSENT: cold intolerance, heat intolerance, polydipsia, polyuria Hematologic/Lymphatic: ABSENT: easy bleeding, easy bruising Physical Exam Vital Signs: Selected Entries 05/13/17 23:37 Temperature 98.0 F Temperature Oral Source Pulse Rate 88 Respiratory 17 Rate Blood Pressure 94/54 L [Left Upper Arm ] Blood Pressure 67 Mean [Left Upper Arm] Blood Pressure Supine Position [Left Upper Arm] O2 Sat by Pulse 100 Oximetry Oxygen Flow 3 Rate General appearance: PRESENT: no acute distress, obese, well-developed, well- nourished Head exam: PRESENT: atraumatic, normocephalic Eye exam: PRESENT: EOMI. ABSENT: scleral icterus Ear exam: PRESENT: normal external ear exam Mouth exam: PRESENT: dry mucosa, tongue midline Neck exam: ABSENT: carotid bruit, JVD, lymphadenopathy, thyromegaly Respiratory exam: PRESENT: clear to auscultation negrito. ABSENT: rales, rhonchi, wheezes Cardiovascular exam: PRESENT: RRR. ABSENT: diastolic murmur, rubs, systolic murmur GI/Abdominal exam: PRESENT: normal bowel sounds, soft. ABSENT: distended, guarding, mass, organolmegaly, rebound, tenderness Rectal exam: PRESENT: deferred Extremities exam: PRESENT: full ROM. ABSENT: calf tenderness, clubbing, pedal edema Neurological exam: PRESENT: alert, awake, oriented to person, oriented to place , oriented to time, oriented to situation, CN II-XII grossly intact. ABSENT: motor sensory deficit Psychiatric exam: PRESENT: appropriate affect, normal mood. ABSENT: homicidal ideation, suicidal ideation Skin exam: PRESENT: dry, intact, warm. ABSENT: cyanosis, rash Results Laboratory Results: 05/13/17 05/13/17 12:20 12:20 WBC 17.4 H RBC 5.38 H Hgb 15.9 H Hct 46.8 MCV 87 MCH 29.7 MCHC 34.0 RDW 12.8 Plt Count 434 Total Counted 100 Seg Neuts % (Manual) 65 Band Neutrophils % 2 L Lymphocytes % (Manual) 17 Atypical Lymphs % 5 Monocytes % (Manual) 10 Eosinophils % (Manual) 1 Basophils % (Manual) 0 Abs Neuts (Manual) 11.7 H Abs Lymphs (Manual) 3.8 Abs Monocytes (Manual) 1.7 H Absolute Eos (Manual) 0.2 Abs Basophils (Manual) 0.0 Sodium 123.1 L Potassium 3.3 L Chloride 73 L Carbon Dioxide 39 H Anion Gap 11 BUN 56 H Creatinine 1.48 H Est GFR ( Amer) 41 L Est GFR (Non-Af Amer) 34 L Glucose 95 Calcium 12.4 H* Magnesium 2.2 Total Bilirubin 0.7 Direct Bilirubin 0.2 AST 38 H ALT 39 Alkaline Phosphatase 46 Creatine Kinase 50 Total Protein 6.8 Albumin 4.1 Impressions: Chest X-Ray 05/13/17 12:24 IMPRESSION: NO ACUTE RADIOGRAPHIC FINDING IN THE CHEST. Renal Ultrasound 05/14/17 00:00 IMPRESSION: 1. Normal sonographic appearance of the bilateral kidneys. Bladder not seen, decompressed by Tinajero catheter. Assessment & Plan - Diagnosis (1) Hyponatremia Is this a current diagnosis for this admission?: Yes Plan: Patient intravascular depleted and is taking lasix. Will hold lasix and given NS and monitor sodium. (2) Hypotension Is this a current diagnosis for this admission?: Yes Plan: Due to hydration. Will hold all blood pressure medications and hydration. With patient electrolyte abnormalities and use of steroids will check cortisol level although patient is less likely to have adrenal insufficiency. (3) Serum calcium elevated Is this a current diagnosis for this admission?: Yes Plan: Due to dehydration resulting in acute renal failure and patient continue used of calcium supplement. Will hydrate and continue to monitor. (4) Urinary retention with incomplete bladder emptying Is this a current diagnosis for this admission?: Yes Plan: Patient unable to void and with acute renal failure. Will place indwelling tinajero and monitor. Renal US ordered. (5) Weakness Is this a current diagnosis for this admission?: Yes Plan: Due to dehydration. Will rehydrate and replace electrolytes. Will consult PT/ OT. (6) COPD (chronic obstructive pulmonary disease) Is this a current diagnosis for this admission?: Yes Plan: Patient without exacerbation. Continue nebs. (7) Pulmonary nodules Is this a current diagnosis for this admission?: Yes Plan: Patient has know history of this. Patient has a specialist to seen on discharge for PET/CT. (8) Acute renal failure Is this a current diagnosis for this admission?: Yes Plan: Due to intravascular depletion long with the use of NSAID and ACEI. Will hold this medications and hydration patient. Patient renal function was 0.86 on discharge on 05/07 and now elevated. (9) Hypokalemia Is this a current diagnosis for this admission?: Yes Plan: Due to lasix. Will discontinue lasix. Replace potassium and monitor. (10) Chronic respiratory failure with hypoxia Is this a current diagnosis for this admission?: Yes Plan: Patient wears 2 L of oxygen at home. She was however desatting at home. There is concern that the oxygen may not be working as she was placed on 2L here and her sats were greater than 90 and patient was not showing any signs of distress. (11) Leukocytosis Is this a current diagnosis for this admission?: Yes Plan: Patient without clear sign of infection. She is dehydration and volume contracted as all cell lines appear elevated. Will hydration and monitor. No antibiotics were given. - Time Time Spent: 30 to 50 Minutes Anticipated discharge: SNF - Inpatient Certification Medical Necessity: Significant Comorbidiites Make Outpatient Treatment Too Risky - Patient may require rehab prior to going home or placement if family agreeable. Patient dehyrated after 2 days of being home., Need Close Monitoring Due to Risk of Patient Decompensation, Need For IV Fluids, Need For Continuous Telemetry Monitoring
[2017-05-15] MEDS: POLYETHYLENE GLYCOL 3350 POWDER 17 GM/1 PACKET PO SCH (11:11)
[2017-05-15] MEDS: FLUTICASONE NASAL SPRAY 50 MCG/SPRY 120 SPRAY/16 GM NASL SCH (11:12)
[2017-05-15] MEDS: CYANOCOBALAMIN (VITAMIN B-12) 1,000 MCG TABLET PO SCH (11:13)
[2017-05-15] MEDS: DOCUSATE SODIUM 100 MG CAPSULE PO SCH ×2 (11:13→17:27)
[2017-05-15] MEDS: MULTIVITAMIN TABLET PO SCH (11:13)
[2017-05-15] MEDS: LORATADINE 10 MG TABLET PO SCH (11:13)
--- NOTE | 2017-05-15 16:53 | PDOC PROGRESS REPORT ---
Subjective Progress Note for:: 05/15/17 Subjective:: 81-year-old female who was recently admitted to the hospital with bronchitis and COPD exacerbation presented to the hospital with fatigue and weakness and was found to have hyponatremia and acute urinary retention. A Fuentes was placed and 800 cc of urine drained. She has been constipated for a week. Patient is doing well now, diet is good. She is sleeping well. She had 2 large bowel movements today. Will go ahead and discontinue the Fuentes catheter. She is awaiting rehab placement. Reason For Visit: MALAISE,ELECTROLYTE DEARRAGEMENTS Physical Exam Vital Signs: Temp Pulse Resp BP Pulse Ox 98.0 F 93 18 132/53 H 95 05/15/17 12:43 05/15/17 12:43 05/15/17 12:43 05/15/17 12:43 05/15/17 12:43 Intake & Output 05/14/17 05/15/17 05/16/17 06:59 06:59 06:59 Intake Total 2704 874 Output Total 1475 2075 Balance 1229 -1201 Weight 73.7 kg 72.5 kg Additional comments: Elderly female sitting up in her chair, appears comfortable Lungs: Clear to auscultation bilaterally normal respiratory effort Cardiac: S1-S2 regular no oral edema Abdomen: Soft, no focal tenderness normal bowel sounds, obese Skin: Warm and dry Neurologic: Awake and alert oriented 3 no facial droop speech is clear and fluent. Results Laboratory Results: 05/15/17 05:51 05/15/17 05:51 05/15/17 05/15/17 05/15/17 05:11 05:51 05:51 WBC 11.7 H RBC 4.42 Hgb 13.1 Hct 39.7 MCV 90 MCH 29.7 MCHC 33.0 RDW 13.2 Plt Count 394 Sodium 140.2 Potassium 3.8 Chloride 98 Carbon Dioxide 35 H Anion Gap 7 BUN 18 Creatinine 0.85 Est GFR ( Amer) > 60 Est GFR (Non-Af Amer) > 60 Glucose 81 Calcium 10.1 Total Bilirubin 0.6 AST 27 ALT 29 Alkaline Phosphatase 40 Total Protein 5.8 L Albumin 3.3 L TSH 2.01 Free T4 1.51 Free T3 pg/mL 2.63 L Impressions: Chest X-Ray 05/13/17 12:24 IMPRESSION: NO ACUTE RADIOGRAPHIC FINDING IN THE CHEST. Renal Ultrasound 05/14/17 00:00 IMPRESSION: 1. Normal sonographic appearance of the bilateral kidneys. Bladder not seen, decompressed by Fuentes catheter. Assessment & Plan - Diagnosis (1) Urinary retention with incomplete bladder emptying Is this a current diagnosis for this admission?: Yes Plan: Give her a trial of void. (2) Hyponatremia Is this a current diagnosis for this admission?: Yes Plan: Improving. (3) Serum calcium elevated Is this a current diagnosis for this admission?: Yes (4) Weakness Is this a current diagnosis for this admission?: Yes (5) Constipation Qualifiers: Constipation type: unspecified constipation type Qualified Code(s): K59.00 - Constipation, unspecified Is this a current diagnosis for this admission?: Yes (6) HTN (hypertension) Qualifiers: Hypertension type: essential hypertension Qualified Code(s): I10 - Essential (primary) hypertension Is this a current diagnosis for this admission?: Yes - Time Time Spent with patient: 15-24 minutes
[2017-05-16] MEDS: FLUTICASONE NASAL SPRAY 50 MCG/SPRY 120 SPRAY/16 GM NASL SCH ×3 (02:53→21:57)
[2017-05-16] MEDS: LEVOTHYROXINE SODIUM 0.025 MG TABLET PO SCH (05:18)
[2017-05-16] MEDS: LANSOPRAZOLE 30 MG TAB.RAP.DR PO SCH ×2 (05:19→18:18)
[2017-05-16 05:27] LABS: HEMATOCRIT 40.2 % (36.0-47.0); HEMOGLOBIN 13.3 g/dL (12.0-15.5); MEAN CORPUSCULAR HEMOGLOBIN 29.7 pg (27.0-33.4); MEAN CORPUSCULAR HGB CONC 33.1 g/dL (32.0-36.0); MEAN CORPUSCULAR VOLUME 90 fl (80-97); PLATELET COUNT 361 10^3/uL (150-450); RED BLOOD COUNT 4.47 10^6/uL (3.72-5.28); RED CELL DISTRIBUTION WIDTH 13.2 % (11.5-14.0); WHITE BLOOD COUNT 12.9 10^3/uL (4.0-10.5)
[2017-05-16 05:50] LABS: ALANINE AMINOTRANSFERASE 32 U/L (9-52); ALBUMIN 3.4 g/dL (3.5-5.0); ALKALINE PHOSPHATASE 40 U/L (38-126); ASPARTATE AMINO TRANSFERASE 28 U/L (14-36); BILIRUBIN,DIRECT 0.2 mg/dL (0.0-0.4); BILIRUBIN,TOTAL 0.4 mg/dL (0.2-1.3); BLOOD UREA NITROGEN 11 mg/dL (7-20); CALCIUM 10.1 mg/dL (8.4-10.2); CHLORIDE 101 mmol/L (98-107); GLUCOSE 85 mg/dL (75-110); POTASSIUM 4.2 mmol/L (3.6-5.0); TOTAL PROTEIN 5.7 g/dL (6.3-8.2)
[2017-05-16 06:02] LABS: FREE T3 3.05 pg/mL (2.77-5.27); FREE T4 (FREE THYROXINE) 1.62 ng/dL (0.78-2.19)
[2017-05-16 06:08] LABS: ANION GAP 6 (5-19); CARBON DIOXIDE 35 mmol/L (22-30); SODIUM 141.9 mmol/L (137-145)
[2017-05-16 06:16] LABS: THYROID STIMULATING HORMONE 2.03 uIU/mL (0.47-4.68)
[2017-05-16] MEDS: MULTIVITAMIN TABLET PO SCH (11:38)
[2017-05-16] MEDS: LORATADINE 10 MG TABLET PO SCH (11:39)
[2017-05-16] MEDS: CYANOCOBALAMIN (VITAMIN B-12) 1,000 MCG TABLET PO SCH (11:39)
[2017-05-16] MEDS: POLYETHYLENE GLYCOL 3350 POWDER 17 GM/1 PACKET PO SCH (11:40)
[2017-05-16] MEDS: DOCUSATE SODIUM 100 MG CAPSULE PO SCH ×2 (11:40→18:17)
[2017-05-16] MEDS: TRAMADOL HCL 50 MG TABLET PO PRN (20:26)
[2017-05-16] MEDS ORDERED: TIOTROPIUM BROMIDE DPI 5 CAP/KIT (18 MCG/CAP) IH ONE (20:30)
[2017-05-16] MEDS: BUDESONIDE/FORMOTEROL 160-4.5 MCG 60 PUFF/6 GM MDI IH SCH (21:56)
[2017-05-17] MEDS: LANSOPRAZOLE 30 MG TAB.RAP.DR PO SCH ×2 (05:58→18:04)
[2017-05-17] MEDS: TRAMADOL HCL 50 MG TABLET PO PRN ×2 (05:58→14:56)
[2017-05-17] MEDS: LEVOTHYROXINE SODIUM 0.025 MG TABLET PO SCH (05:59)
[2017-05-17] MEDS: TIOTROPIUM BROMIDE DPI 5 CAP/KIT (18 MCG/CAP) IH SCH (12:09)
[2017-05-17] MEDS: BUDESONIDE/FORMOTEROL 160-4.5 MCG 60 PUFF/6 GM MDI IH SCH ×2 (12:10→21:23)
[2017-05-17] MEDS: LORATADINE 10 MG TABLET PO SCH (12:11)
[2017-05-17] MEDS: CYANOCOBALAMIN (VITAMIN B-12) 1,000 MCG TABLET PO SCH (12:11)
[2017-05-17] MEDS: FLUTICASONE NASAL SPRAY 50 MCG/SPRY 120 SPRAY/16 GM NASL SCH ×2 (12:11→21:23)
[2017-05-17] MEDS: MULTIVITAMIN TABLET PO SCH (12:12)
[2017-05-17] MEDS: POLYETHYLENE GLYCOL 3350 POWDER 17 GM/1 PACKET PO SCH (12:13)
[2017-05-17] MEDS: DOCUSATE SODIUM 100 MG CAPSULE PO SCH ×2 (12:14→18:06)
--- NOTE | 2017-05-17 17:27 | PDOC PROGRESS REPORT ---
Subjective Progress Note for:: 05/16/17 Subjective:: 81-year-old female who was recently admitted to the hospital with bronchitis and COPD exacerbation presented to the hospital with fatigue and weakness and was found to have hyponatremia and acute urinary retention. A Fuentes was placed and 800 cc of urine drained. Constipation resolved with laxatives. Fuentes catheter was removed. She is awaiting SNF for subacute rehab arranged for Saturday. Reason For Visit: MALAISE,ELECTROLYTE DEARRAGEMENTS Physical Exam Vital Signs: Temp Pulse Resp BP Pulse Ox 98.6 F 92 16 128/59 H 99 05/17/17 15:41 05/17/17 15:41 05/17/17 15:41 05/17/17 15:41 05/17/17 15:41 Intake & Output 05/16/17 05/17/17 05/18/17 06:59 06:59 06:59 Intake Total 1127 1240 950 Output Total 800 1300 Balance 327 -60 950 Weight 72.5 kg 72.6 kg Additional comments: Elderly female sitting up in her chair, appears comfortable Lungs: Clear to auscultation bilaterally normal respiratory effort Cardiac: S1-S2 regular no oral edema Abdomen: Soft, no focal tenderness normal bowel sounds, obese Skin: Warm and dry Neurologic: Awake and alert oriented 3 no facial droop speech is clear and fluent. Results Laboratory Results: 05/16/17 05:12 05/16/17 05:12 Impressions: Chest X-Ray 05/13/17 12:24 IMPRESSION: NO ACUTE RADIOGRAPHIC FINDING IN THE CHEST. Renal Ultrasound 05/14/17 00:00 IMPRESSION: 1. Normal sonographic appearance of the bilateral kidneys. Bladder not seen, decompressed by Fuentes catheter. Assessment & Plan - Diagnosis (1) Urinary retention with incomplete bladder emptying Is this a current diagnosis for this admission?: Yes (2) Hyponatremia Is this a current diagnosis for this admission?: Yes (3) Serum calcium elevated Is this a current diagnosis for this admission?: Yes (4) Weakness Is this a current diagnosis for this admission?: Yes (5) Constipation Qualifiers: Constipation type: unspecified constipation type Qualified Code(s): K59.00 - Constipation, unspecified Is this a current diagnosis for this admission?: Yes (6) HTN (hypertension) Qualifiers: Hypertension type: essential hypertension Qualified Code(s): I10 - Essential (primary) hypertension Is this a current diagnosis for this admission?: Yes - Time Time Spent with patient: Less than 15 minutes - Plan Summary Plan Summary: Her hyponatremia, weakness, urinary retention and constipation have resolved and she is awaiting discharge to subacute rehab at SNF.
--- NOTE | 2017-05-17 17:29 | PDOC PROGRESS REPORT ---
Subjective Progress Note for:: 05/17/17 Subjective:: 81-year-old female who was recently admitted to the hospital with bronchitis and COPD exacerbation presented to the hospital with fatigue and weakness and was found to have hyponatremia and acute urinary retention. A Fuentes was placed and 800 cc of urine drained. Constipation resolved with laxatives. Fuentes catheter was removed. She is awaiting SNF for subacute rehab arranged for Saturday. Reason For Visit: MALAISE,ELECTROLYTE DEARRAGEMENTS Physical Exam Vital Signs: Temp Pulse Resp BP Pulse Ox 98.6 F 92 16 128/59 H 99 05/17/17 15:41 05/17/17 15:41 05/17/17 15:41 05/17/17 15:41 05/17/17 15:41 Intake & Output 05/16/17 05/17/17 05/18/17 06:59 06:59 06:59 Intake Total 1127 1240 950 Output Total 800 1300 Balance 327 -60 950 Weight 72.5 kg 72.6 kg Additional comments: Elderly female sitting comfortably in bed reading the newspape Lungs: Clear to auscultation bilaterally, normal respiratory effort Cardiac: S1-S2 regular no oral edema Abdomen: Soft, no focal tenderness normal bowel sounds, obese Skin: Warm and dry Neurologic: Awake and alert oriented 3 no facial droop speech is clear and fluent. Results Laboratory Results: 05/16/17 05:12 05/16/17 05:12 Impressions: Chest X-Ray 05/13/17 12:24 IMPRESSION: NO ACUTE RADIOGRAPHIC FINDING IN THE CHEST. Renal Ultrasound 05/14/17 00:00 IMPRESSION: 1. Normal sonographic appearance of the bilateral kidneys. Bladder not seen, decompressed by Fuentes catheter. Assessment & Plan - Diagnosis (1) Urinary retention with incomplete bladder emptying Is this a current diagnosis for this admission?: Yes (2) Hyponatremia Is this a current diagnosis for this admission?: Yes (3) Serum calcium elevated Is this a current diagnosis for this admission?: Yes (4) Weakness Is this a current diagnosis for this admission?: Yes (5) Constipation Qualifiers: Constipation type: unspecified constipation type Qualified Code(s): K59.00 - Constipation, unspecified Is this a current diagnosis for this admission?: Yes (6) HTN (hypertension) Qualifiers: Hypertension type: essential hypertension Qualified Code(s): I10 - Essential (primary) hypertension Is this a current diagnosis for this admission?: Yes - Time Time Spent with patient: Less than 15 minutes - Plan Summary Plan Summary: Hyponatremia, weakness, urinary retention and constipation have resolved and she is awaiting discharge to subacute rehab at SNF.
[2017-05-18] MEDS: ACETAMINOPHEN 325 MG TABLET PO PRN ×2 (00:10→22:53)
[2017-05-18] MEDS: LANSOPRAZOLE 30 MG TAB.RAP.DR PO SCH ×2 (06:13→17:11)
[2017-05-18] MEDS: LEVOTHYROXINE SODIUM 0.025 MG TABLET PO SCH (06:13)
[2017-05-18] MEDS: CYANOCOBALAMIN (VITAMIN B-12) 1,000 MCG TABLET PO SCH (10:19)
[2017-05-18] MEDS: DOCUSATE SODIUM 100 MG CAPSULE PO SCH ×2 (10:19→17:11)
[2017-05-18] MEDS: MULTIVITAMIN TABLET PO SCH (10:19)
[2017-05-18] MEDS: LORATADINE 10 MG TABLET PO SCH (10:19)
[2017-05-18] MEDS: TIOTROPIUM BROMIDE DPI 5 CAP/KIT (18 MCG/CAP) IH SCH (10:20)
[2017-05-18] MEDS: FLUTICASONE NASAL SPRAY 50 MCG/SPRY 120 SPRAY/16 GM NASL SCH ×2 (10:20→21:46)
[2017-05-18] MEDS: POLYETHYLENE GLYCOL 3350 POWDER 17 GM/1 PACKET PO SCH (10:20)
[2017-05-18] MEDS: BUDESONIDE/FORMOTEROL 160-4.5 MCG 60 PUFF/6 GM MDI IH SCH ×2 (10:20→21:46)
--- NOTE | 2017-05-18 15:59 | PDOC PROGRESS REPORT ---
Subjective Progress Note for:: 05/18/17 Subjective:: 81-year-old female who was recently admitted to the hospital with bronchitis and COPD exacerbation presented to the hospital with fatigue and weakness and was found to have hyponatremia and acute urinary retention. A Fuentes was placed and 800 cc of urine drained. Constipation resolved with laxatives. Fuentes catheter was removed. She is awaiting SNF for subacute rehab arranged for Saturday. No complaints at present. Reason For Visit: MALAISE,ELECTROLYTE DEARRAGEMENTS Physical Exam Vital Signs: Temp Pulse Resp BP Pulse Ox 97.9 F 76 14 119/54 L 100 05/18/17 00:00 05/18/17 07:00 05/18/17 00:00 05/18/17 00:00 05/18/17 00:00 Intake & Output 05/17/17 05/18/17 05/19/17 06:59 06:59 06:59 Intake Total 1240 1945 834 Output Total 1300 Balance -60 1945 834 Weight 72.6 kg 71.3 kg Additional comments: Elderly female sitting comfortably in bed reading the newspape Lungs: Clear to auscultation bilaterally, normal respiratory effort Cardiac: S1-S2 regular no oral edema Abdomen: Soft, no focal tenderness normal bowel sounds, obese Skin: Warm and dry Neurologic: Awake and alert oriented 3 no facial droop speech is clear and fluent. Results Laboratory Results: 05/16/17 05:12 05/16/17 05:12 Impressions: Chest X-Ray 05/13/17 12:24 IMPRESSION: NO ACUTE RADIOGRAPHIC FINDING IN THE CHEST. Renal Ultrasound 05/14/17 00:00 IMPRESSION: 1. Normal sonographic appearance of the bilateral kidneys. Bladder not seen, decompressed by Fuentes catheter. Assessment & Plan - Diagnosis (1) Urinary retention with incomplete bladder emptying Is this a current diagnosis for this admission?: Yes (2) Hyponatremia Is this a current diagnosis for this admission?: Yes (3) Serum calcium elevated Is this a current diagnosis for this admission?: Yes (4) Weakness Is this a current diagnosis for this admission?: Yes (5) Constipation Qualifiers: Constipation type: unspecified constipation type Qualified Code(s): K59.00 - Constipation, unspecified Is this a current diagnosis for this admission?: Yes (6) HTN (hypertension) Qualifiers: Hypertension type: essential hypertension Qualified Code(s): I10 - Essential (primary) hypertension Is this a current diagnosis for this admission?: Yes - Time Time Spent with patient: 15-24 minutes - Plan Summary Plan Summary: Hyponatremia, urinary retention and constipation have resolved. She is awaiting discharge to subacute rehab at [facility]. Continue outpatient inhalers for COPD.
[2017-05-18] MEDS ORDERED: BISACODYL 5 MG TABEC PO ONE (16:30)
[2017-05-18] MEDS: TRAMADOL HCL 50 MG TABLET PO PRN (19:46)
[2017-05-19] MEDS: LANSOPRAZOLE 30 MG TAB.RAP.DR PO SCH (05:46)
[2017-05-19] MEDS: LEVOTHYROXINE SODIUM 0.025 MG TABLET PO SCH (05:47)
[2017-05-19 09:05] VITALS: BP 137/62
[2017-05-19] MEDS: TIOTROPIUM BROMIDE DPI 5 CAP/KIT (18 MCG/CAP) IH SCH (11:09)
[2017-05-19] MEDS: CYANOCOBALAMIN (VITAMIN B-12) 1,000 MCG TABLET PO SCH (11:10)
[2017-05-19] MEDS: FLUTICASONE NASAL SPRAY 50 MCG/SPRY 120 SPRAY/16 GM NASL SCH (11:10)
[2017-05-19] MEDS: LORATADINE 10 MG TABLET PO SCH (11:11)
[2017-05-19] MEDS: DOCUSATE SODIUM 100 MG CAPSULE PO SCH (11:11)
[2017-05-19] MEDS: POLYETHYLENE GLYCOL 3350 POWDER 17 GM/1 PACKET PO SCH (11:12)
[2017-05-19] MEDS: MULTIVITAMIN TABLET PO SCH (11:12)
[2017-05-19] MEDS: BUDESONIDE/FORMOTEROL 160-4.5 MCG 60 PUFF/6 GM MDI IH SCH (11:13)
--- NOTE | 2017-05-28 17:59 | PDOC DISCHARGE SUMMARY ---
General - Admit/Disc Date/PCP Admission Date/Primary Care Provider: 05/13/17 14:20 NORMA AKERS MD Discharge Date: 05/19/17 - Discharge Diagnosis (1) Urinary retention with incomplete bladder emptying Is this a current diagnosis for this admission?: Yes (2) Hyponatremia Is this a current diagnosis for this admission?: Yes (3) Serum calcium elevated Is this a current diagnosis for this admission?: Yes (4) Weakness Is this a current diagnosis for this admission?: Yes (5) Constipation Is this a current diagnosis for this admission?: Yes (6) HTN (hypertension) Is this a current diagnosis for this admission?: Yes - Additional Information Resuscitation Status: Full Code Discharge Activity: Activity As Tolerated Home Medications: Amlodipine Besylate/Benazepril [Lotrel 10-20 mg Capsule] 1 cap PO DAILY Budesonide/Formoterol Fumarate [Symbicort HFA 160-4.5 mcg Inhaler 6 gm] 2 puff IH BID 05/06/17 Calcium Carb/Vitamin D3/Vit K1 [Viactiv Soft Chew] 1 tab PO DAILY 05/06/17 Celecoxib [Celebrex 200 mg Capsule] 200 mg PO DAILY 05/06/17 Cyanocobalamin (Vitamin B-12) [Vitamin B12] 2,500 mcg PO DAILY 05/06/17 Diazepam [Valium 5 mg Tablet] 5 mg PO DAILYP PRN 05/06/17 Docusate Sodium [Colace 100 mg Capsule] 100 mg PO BIDP PRN 05/06/17 Levothyroxine Sodium [Synthroid] 25 mcg PO Q6AM 05/06/17 Loratadine [Claritin 10 mg Tablet] 10 mg PO DAILY 05/06/17 Multivit-Min/Iron/Folic/Lutein [Centrum Silver Women Tablet] 1 tab PO DAILY Rosuvastatin Calcium [Crestor 10 mg Tablet] 10 mg PO DAILY 05/06/17 Tiotropium [place] [Spiriva Handihaler 5 Cap/Kit (18 Mcg/Cap)] 2 puff IH QAM Tramadol HCl [Ultram 50 mg Tablet] 50 mg PO BIDP PRN 05/06/17 Fluticasone Propionate [Flonase Nasal [place] 50 Mcg/[place] 16 gm] 2 spray NASL Q12 spray.pump 05/11/17 Budesonide/Formoterol Fumarate [Symbicort HFA 160-4.5 mcg Inhaler 6 gm] 2 puff IH Q12 inhaler 05/19/17 Docusate Sodium [Colace 100 mg Capsule] 100 mg PO BID capsule 05/19/17 History of Present Illness History of Present Illness: BERRY JAVED is a 81 year old female presented to the hospital with fatigue and weakness and was found to have hyponatremia and acute urinary retention. A Fuentes was placed and 800 cc of urine drained. Her electrolyte abnormalities were corrected. Hyponatremia was treated with IV fluids. Constipation was treated with laxatives and stool softeners. Fuentes was removed and she did well with a trial of void. Initially she had significant weakness and the plan was to send her to a [facility] facility for rehabilitation however the patient's strength improved and she was able to be discharged home with her family. Hospital Course Hospital Course: See above. Physical Exam Vital Signs: Temp Pulse Resp BP Pulse Ox 97.4 F 90 12 137/62 H 100 05/19/17 07:37 05/19/17 07:37 05/19/17 07:37 05/19/17 07:37 05/19/17 07:37 General appearance: PRESENT: no acute distress Respiratory exam: PRESENT: clear to auscultation negrito, unlabored GI/Abdominal exam: PRESENT: normal bowel sounds. ABSENT: tenderness Rectal exam: PRESENT: deferred Extremities exam: ABSENT: calf tenderness Neurological exam: PRESENT: alert, altered, awake, oriented to person, oriented to place, oriented to time Results Laboratory Results: 05/16/17 05:12 05/16/17 05:12 Impressions: Chest X-Ray 05/13/17 12:24 IMPRESSION: NO ACUTE RADIOGRAPHIC FINDING IN THE CHEST. Renal Ultrasound 05/14/17 00:00 IMPRESSION: 1. Normal sonographic appearance of the bilateral kidneys. Bladder not seen, decompressed by Fuentes catheter. Qualifiers PATEINT BEING DISCHARGED WITH ANY OF THE FOLLOWING DIAGNOSIS?: No Plan Time Spent: Less than 30 Minutes - Follow-up with primary care in 1 week.
== END 2017-05-19 16:00 | disposition home health service (06) | DRG 641 ==
LOC: ER 12:03 → EH 14:20 → 4W 16:31
PROVIDERS: ADMIT Pediatrics; ATTEND Pediatrics
DX: E87.1 Hypo-osmolality and hyponatremia (principal); J96.11 Chronic respiratory failure with hypoxia; E87.6 Hypokalemia; R33.9 Retention of urine, unspecified; I95.9 Hypotension, unspecified; J44.9 Chronic obstructive pulmonary disease, unspecified; J40 Bronchitis, not specified as acute or chronic; R91.8 Other nonspecific abnormal finding of lung field; D72.829 Elevated white blood cell count, unspecified; K59.00 Constipation, unspecified; E03.9 Hypothyroidism, unspecified; E78.5 Hyperlipidemia, unspecified; E86.0 Dehydration; I10 Essential (primary) hypertension; Z99.81 Dependence on supplemental oxygen; Z90.49 Acquired absence of other specified parts of digestive tract; Z79.899 Other long term (current) drug therapy; Z83.3 Family history of diabetes mellitus; Z88.0 Allergy status to penicillin
CPT/HCPCS: 36415; 71045; 76770; 80048; 80053; 81001; 82533; 82550; 82553; 83605; 83735; 83880; 84295; 84439; 84443; 84481; 84484; 85025; 85027; 87070; 87880; 93005; 93010; 96360; 99285; G8978-GP; G8979-GP; G8987-GO; G8988-GO; G8989-GO; J3490; J7030

== ENCOUNTER → 2017-06-23 | Outpatient (CLI) | payer MEDICARE ==
--- NOTE | 2017-07-03 14:11 | RADIOLOGY REPORT (SQ) ---
EXAM DESCRIPTION: PET CT SKULL/THIGH COMPLETED DATE/TIME: 06/23/2017 6:33 pm REASON FOR STUDY: MULTIPLE LUNG NODULES R91.8 OTHER NONSPECIFIC ABNORMAL FINDING OF LUNG FIELD COMPARISON: Outside chest CT 04/29/2017, [facility] CT chest here, 05/08/2014 RADIONUCLIDE AND DOSE: 10.6 mCi F18 FDG The route of agent administration: Intravenous FASTING BLOOD SUGAR: 78 mg/dl CONTRAST TYPE AND DOSE: No CT contrast given. TECHNIQUE: Blood glucose level was verified. Above dose of FDG was injected intravenously. 2-D seg mented attenuation correction images were obtained from the base of the skull to the midthighs. Nonc ontrast CT images were obtained for attenuation correction and fusion with emission images. CT image s were performed without oral or intravenous contrast and are not sensitive for parenchymal lesions. A series of overlapping emission PET images were obtained. Images reviewed and manipulated at [email or web address] work station by the radiologist. Images stored on PACS. LIMITATIONS: None. FINDINGS: HEAD AND NECK: No areas of abnormal metabolic activity in the soft tissues of the head and neck. CHEST: On axial image 74, a 6 mm alveolar nodule is present. This is unchanged from 04/29/2017 CT an d 05/08/2014 CT chest. This has no discernible metabolic uptake and is a benign finding. Other alveolar nodules described on outside CT 04/29/2017 are no longer identified. There is non metabolic bandlike scarring along the periphery of the the right upper lobe and right mi ddle lobe near the minor fissure. Calcific pleural plaques in the right hemithorax are present witho ut metabolic activity. No pleural effusion. ABDOMEN AND PELVIS: No areas of abnormal metabolic activity in the abdomen or pelvis. Expected physi ologic activity is present in the genitourinary system and bowel. PROXIMAL LOWER EXTREMITIES: No areas of abnormal metabolic activity in the soft tissues of the lower extremities. BONES: No abnormal metabolic activity in the visualized skeleton. ADDITIONAL CT FINDINGS: Calcified carotid bifurcations and coronary arteries. Post cholecystectomy. Diffuse degenerative disc changes lumbar spine. OTHER: Blood pool background SUV 1.65. Liver background activity 2.4 SUV IMPRESSION: No hypermetabolic lung lesions worrisome for malignancy TECHNICAL DOCUMENTATION: JOB ID: [id number] [employer]- All Rights Reserved
== END ==
LOC: RAD 16:26
PROVIDERS: ATTEND Internal Medicine Pulmonary Disease
DX: R91.8 Other nonspecific abnormal finding of lung field (principal)
CPT/HCPCS: 78815; A9552

== ENCOUNTER → 2017-08-26 | Outpatient (CLI) | payer MEDICAID, MEDICARE ==
--- NOTE | 2017-08-26 10:38 | WOMENS IMAGING REPORT ---
EXAM DESCRIPTION: BONE DENSITY HIP/SPINE COMPLETED DATE/TIME: 08/26/2017 10:18 am REASON FOR STUDY: OSTEOPOROSIS M81.8 OTHER OSTEOPOROSIS WITHOUT CURRENT PATHOLOGICAL FRACTU M81.0 AGE-RELATED OSTEOPOROSIS W/O CURRENT PATHOLOGICAL FRAC COMPARISON: 2015 TECHNIQUE: Dual-Energy X-ray Absorptiometry (DEXA) of the AP Spine and Hip. LIMITATIONS: None. FINDINGS: LUMBAR SPINE: The bone mineral density (BMD) measured from L1-L4 in the AP projection correlates with a T-score of -0.1, which is normal as defined by the World Health Organization. HIP: The bone mineral density (BMD) measured in the left hip correlates with a T-score of -3.1, which is o steoporosis as defined by the World Health Organization. IMPRESSION: 1. LUMBAR SPINE: NORMAL. 2. HIP: OSTEOPOROSIS. Slight deterioration in the hip. COMMENT: The World Health Organization defines low BMD as follows: T-score: Normal: Greater than -1.0 Osteopenia: Between -1.0 and -2.5 Osteoporosis: Less than -2.5 without fractures Established osteoporosis: Less than -2.5 with fractures In general, you may wish to consider: Diagnosis Treatment Follow-up DEXA Normal BMD Prevention 2-3 years Osteopenia Prevention/Therapy 1-2 years Osteoporosis Therapy Yearly TECHNICAL DOCUMENTATION: JOB ID: [id number]- All Rights Reserved Reading location - IP/workstation name: [email or web address]
== END ==
LOC: WI 09:47
PROVIDERS: ATTEND Internal Medicine Medical Oncology
DX: M81.0 Age-related osteoporosis without current pathological fracture (principal)
CPT/HCPCS: 77080